=== PATIENT | female | born 1995 | race African-American/Black ===

== ENCOUNTER 2019-03-16 21:45 | Observation (INO) | payer OTHER, SELFPAY ==
[2019-03-16 21:57] VITALS: BP 135/83; PULSE 109
[2019-03-16 22:00] VITALS: BP 140/88; PULSE 106
--- NOTE | 2019-03-18 09:50 | PM.OBTRLD ---
OB - Triage/Final Diagnosis Final Diagnosis (1) Fall (on) (from) other stairs and steps, initial encounter: Code(s): W10.8XXA - Fall (on) (from) other stairs and steps, initial encounter Status: Acute
== END 2019-03-16 23:00 | disposition home or self-care (01) ==
PROVIDERS: Admitting Provider Obstetrics & Gynecology; Visit Provider Obstetrics & Gynecology
DX: O99.89 Other specified diseases and conditions complicating pregnancy, childbirth and the puerperium (principal); Z3A.37 37 weeks gestation of pregnancy; W10.8XXA Fall (on) (from) other stairs and steps, initial encounter
CPT/HCPCS: G0378; G0379

== ENCOUNTER 2019-03-23 17:42 | Observation (INO) | payer OTHER, SELFPAY ==
[2019-03-23 18:00] VITALS: BMI 38.0
[2019-03-23 18:10] VITALS: TEMP 36.6
--- NOTE | 2019-03-23 19:34 | OBADM ---
This patient, Jackie Mayfield, admitted to the OB room Labor/Delivery/Recovery 104 for observation. Patient/family oriented to hospital policies and general routines including ID bracelet, bed and alarms, visiting hours, pain management, procedures, bathroom and other care routines, personal items, smoking policy, room service/diet, and visiting hours. Patient/Family are encouraged to report perceived risks to care and to ask questions if they do not understand what they are told or what they should do.
--- NOTE | 2019-03-24 09:09 | PM.OBTRLD ---
OB - Triage/Final Diagnosis Visit Information Reason for evaluation: threatened labor Evaluation Vital signs: Vital Signs - 24 hr 03/23/19 18:10 Temperature 36.6 C
== END 2019-03-23 19:30 | disposition home or self-care (01) ==
PROVIDERS: Admitting Provider Obstetrics & Gynecology; Visit Provider Obstetrics & Gynecology
DX: O47.9 False labor, unspecified (principal); Z3A.00 Weeks of gestation of pregnancy not specified
CPT/HCPCS: 84112; G0378; G0379

== ENCOUNTER 2019-03-24 16:05 | Outpatient (CLI) | payer OTHER, SELFPAY ==
--- NOTE | ~2019-03-24 | US_ITS ---
EXAMINATION: US OB follow up DATE: 03/24/2019 17:00 INDICATION: Decreased movement and decreased heart rate. Assess growth and amniotic fluid index. TECHNIQUE: Real-time ultrasound of the pelvis was performed. The interpreting radiologist was not pre sent for the study. COMPARISON: None. FINDINGS: There is a single living fetus in vertex presentation. The placenta is anterior fundal. heart rate is 134 beats per minute (bpm). The amniotic fluid index is 15.6 cm, which is normal (5th%-95%: 7.3-23.9 cm at 38 weeks estimated gestational age). The following biometric data were obtained: BPD: 8.4 cm -> 33 weeks 5 days Head circumference: 31.7 cm -> 35 weeks 4 days Abdominal circumference: 33.5 cm -> 37 weeks 3 days Femur length: 7.0 cm -> 35 weeks 6 days These measurements are concordant. Head circumference to abdominal circumference ratio: 0.95 (normal range 0.93-1.09). Estimated weight: 2923 g (+/-) 438 g. or 6 lbs. 7 oz. (+/-) 15 oz. IMPRESSION: 1. Single living fetus in vertex presentation with heart rate of 134 bpm. 2. Gestational age by ultrasound of 35 weeks 5 day(s) +/- 2 week(s) 3 day(s) with ultrasound estimate d date of delivery (HENRY) of 04/23/2019. Estimated weight is 21st percentile by Hadlock criteria w hen 04/06/2019 is used as the HENRY. Please correlate with clinical information or earlier ultrasounds f or most accurate HENRY. 3. Normal amniotic fluid index of 15.6 cm. Reviewed, dictated and finalized at location A. ING COORDINATION METEOROLOGIST IMPRESSION: 1. Single living fetus in vertex presentation with heart rate of 134 bpm. 2. Gestational age by ultrasound of 35 weeks 5 day(s) +/- 2 week(s) 3 day(s) wi th ultrasound estimated date of delivery (HENRY) of 04/23/2019. Estimated ron ght is 21st percentile by Hadlock criteria when 04/06/2019 is used as the HENRY. P lease correlate with clinical information or earlier ultrasounds for most accur ate HENRY. 3. Normal amniotic fluid index of 15.6 cm.
== END 2019-03-24 16:06 | disposition home or self-care (01) ==
LOC: ANHIMG 16:10
PROVIDERS: Visit Provider Obstetrics & Gynecology
DX: Z34.93 Encounter for supervision of normal pregnancy, unspecified, third trimester (principal); Z3A.35 35 weeks gestation of pregnancy
CPT/HCPCS: 76816

== ENCOUNTER 2019-03-29 06:16 | Inpatient (IN) | payer OTHER, SELFPAY ==
[2019-03-29] VITALS (59 sets, daily range): BP systolic 91–163; BP diastolic 20–139; PULSE 82–132; RESP 16–18; TEMP 36.3–36.9; O2SAT 92–100; BMI 25.9
--- NOTE | 2019-03-29 06:58 | WPDANESEPP ---
Anes - Eval Pre Procedure Date/Time: 03/29/19 06:58 Pre Op Diagnosis: IOL Patient Data Age: 23 Gender: F Height: Weight: Last Vital Signs Pulse 109 H 03/29/19 06:34 BP 128/76 03/29/19 06:34 Allergies Allergy/AdvReac Type Severity Reaction Status Date / Time No Known Allergies Allergy Verified 03/06/19 14:29 Home Medications Medication Instructions Recorded Confirmed Type PNV cmb#95-ferrous fumarate-FA 1 tablet PO DAILY 03/06/19 03/23/19 History [] Patient hx anesthesia problems: none Family hx anesthesia problems: none PMFSH Family History Family History (Updated 03/06/19 @ 14:31 by Alejandra Barrera RN) Mother Hypertension Father Hypertension Diabetes mellitus Grandparent Diabetes mellitus Social History Social History Substance use: never Spiritual care concerns: No Exam Day of Procedure 03/29/19 06:58
[2019-03-29 07:28] LABS: Basophils Percent Auto 0.3 % (0.2-1.2); Eosinophils Absolute Auto 0.1 K/mm3 (0-0.3); Eosinophils Percent Auto 0.5 % (0-4.4); Hematocrit 33.6 % (37.0-47.0); Hemoglobin 11.1 g/dL (12.0-15.0); Immature Granulocyte Percent A 0.9 % (0-0.5); Lymphocytes Absolute Auto 2.19 K/mm3 (0.9-3.2); Lymphocytes Percent Auto 20.5 % (18.3-44.2); Mean Corpuscular Hemoglobin 27.5 pg (26-34); Mean Corpuscular Volume 83.4 fl (80-100); Mean Platelet Volume 9.3 fl (7.4-10.4); Monocytes Absolute Auto 0.8 K/mm3 (0.1-0.6); Monocytes Percent Auto 7.6 % (2.6-8.5); Neutrophils Absolute Auto 7.5 K/mm3 (1.3-6.7); Neutrophils Percent Auto 70.2 % (45.5-73.1); Platelet Count Result 373 k/mm3 (150-375); Red Blood Count 4.03 M/mm3 (4.2-5.4); Red Cell Distribution Width 14.4 % (11.5-14.5); White Blood Count 10.7 K/mm3 (4.5-10.0)
--- NOTE | 2019-03-29 07:45 | WPDHPUPDATE1 ---
History and Physical Update Update Date/Time: 03/29/19 07:45 History and Physical has been reviewed, including an updated exam of the patient. There are NO changes in the patient's condition. Risks, benefits, and alternatives have been discussed and questions answered. Patient agrees to proceed with procedure.
--- NOTE | 2019-03-29 07:45 | WPDOBADMIT ---
Obstetrics - Admit Note Admission Note: record reviewed. No pertinent additions to the history and/or any subsequent changes in the physical findings that are not consistent with the expected course of the were found. Additions to the history and/or subsequent changes in the physical findings follow. None.
[2019-03-29] MEDS: LACTATED RINGERS 1,000 ML 125 ML IV CONT ×3 (10:20→12:25)
--- NOTE | 2019-03-29 13:36 | PM.OBPRVD ---
OB - Delivery Note Procedure Delivery date: 03/29/19 Route of delivery: Episiotomy description: None Laceration description: None Specimen: No Estimated blood loss (mL): 200 Anesthesia type: Epidural Disposition: floor Narrative: Patient was prepped in the usual manner for this procedure. Maternal expulsive efforts readily delivered vertex. Rest of baby was delivered without difficulty. Cord was clamped and cut and placenta then delivered spontaneously. Cervix vagina and vulva were inspected with no lacerations or tears. Uterus is well contracted. At this point the procedure was considered terminated. [place] [facility] Weeks of gestation at delivery: 39 Infant gender: Male presentation: vertex Placenta delivery description: Spontaneous score one minute: 8 score five minutes: 9
--- NOTE | 2019-03-29 17:32 | PC.NURSE ---
Patient transferred to post room #282 via wheelchair. Support person present. Oriented to unit, room, information board, rooming in, admission packet and security measures. Patient verbalizes understanding.
[2019-03-30 05:18] LABS: Hematocrit 33.2 % (37.0-47.0); Hemoglobin 10.7 g/dL (12.0-15.0)
[2019-03-30 07:35] VITALS: BP 110/63; PULSE 84; RESP 17; TEMP 36.6; O2SAT 100
--- NOTE | 2019-03-30 10:22 | PM.OBDSVD ---
OB - DS: Summary OB Procedures : None OB Procedures Intrapartum: Spontaneous Vag Delivery OB Procedures: : None Time Spent with Patient Time attestation: Total time spent providing and/or coordinating discharge services: DS: Data Data Completed and Pending Labs on day of discharge: Labs from last 24 hours 03/30/19 04:39 Hgb 10.7 L Hct 33.2 L Discharge Plan Discharge Discharging Clinician: Manohar Eckert Anticipated Discharge Date/Time: 03/31/19 08:23 Patient Disposition: Home, Self-Care Activity: as tolerated Diet: as tolerated Patient Instructions: Antibiotic Form Stand Alone Forms: General Discharge Information Follow-up/Referrals: Manohar Eckert MD [Physician] - 3 Weeks Discharge Medications: New ibuprofen 600 mg Tablet 600 mg PO Q6H PRN (Reason: Cramping) Qty: 30 RF: 0 Continued PNV cmb#95-ferrous fumarate-FA [] 28 mg iron- 800 mcg Tablet 1 tablet PO DAILY RF: 0 Date of admission: 03/29/19 06:16 Primary Care Provider: UNKNOWN,DOCTOR Admitting Provider: Manohar Eckert Attending physician on admission: Manohar Eckert
--- NOTE | 2019-03-30 14:07 | WPDANLDPN2 ---
Anes-Prog Note L&D Date/Time: 03/30/19 14:07 Comfortable throughout: labor and delivery Neuraxial method: epidural Epidural/Spinal procedure site: clean & non-tender Neuro status: Neuro function grossly intact. Cardiovascular status: normal Respiratory status: normal Airway patency: baseline Mental status: baseline Post-Op hydration status: normal Vital Signs: Last Vital Signs Temp 97.9 F 03/30/19 07:35 Pulse 84 03/30/19 07:35 Resp 17 03/30/19 07:35 BP 110/63 03/30/19 07:35 Pulse Ox 100 03/30/19 07:35 Post-procedural complaints: none Patient feedback: Patient satisfied with anesthetic care.
[2019-03-30 20:10] VITALS: BP 105/67; PULSE 83; RESP 16; TEMP 37.1
[2019-03-31 07:31] LABS: Rapid Plasma Reagin Non-Reactive (NonReactive)
[2019-03-31 08:25] VITALS: BP 109/66; PULSE 75; RESP 14; TEMP 36.8; O2SAT 100
[2019-03-31] MEDS: TETANUS,DIPHTHERIA,AC PERTUSSIS ADULT 0.5 ML (ADACEL) IM (08:28)
--- NOTE | 2019-03-31 11:14 | PC.NURSE ---
Patient was given the opportunity to view the discharge video Mother & Baby Care, The First Two Weeks and to ask questions. Patient declined viewing the video and has been given the mother/baby guide for home reference.
--- NOTE | 2019-04-05 02:36 | P.DS_ITS ---
DS: Diagnosis Admitting Diagnosis Admitting Diagnosis: Encounter for supervision of normal , unspecified, third trimester OB - DS: Summary OB Procedures : None OB Procedures Intrapartum: Spontaneous Vag Delivery OB Procedures: : None Time Spent with Patient Time attestation: Total time spent providing and/or coordinating discharge services: Discharge Plan Discharge Consulting providers: Vivienne Lima Discharging Clinician: Manohar Eckert Anticipated Discharge Date/Time: 03/31/19 08:23 Patient Disposition: Home, Self-Care Activity: as tolerated Diet: as tolerated Discharge Instructions: Education: Mom and Baby Guide Given to: Mother Follow-Up: Call your delivering provider's office for an appointment to be seen in: 3 weeks Mom and baby should come to the [facility] for the follow-up appointment. Appointment Date/Time: Monday, April 01, 2019 at 9:00 am What to expect at your follow-up visit: Blood Pressure Check Physical Assessment Call [phone] if you are unable to keep your appointment time. BREAST CARE: 1. Wear a snug supportive bra. 2. For engorgement discomfort: Bottle Feeding: A. May apply ice packs EPISIOTOMY/PERINEAL CARE: 1. Until bleeding stops, use your german bottle after urinating 2. Change your pad frequently throughout the day 3. You may take sitz baths several times a day (fill your bathtub with warm water and soak for 20 minutes.) Do NOT bathe in the water 4. No tub baths until seen by your physician - You may shower ACTIVITY: 1. Rest as much as possible. 2. Do not exercise or lift anything heavier than your baby (such as laundry or other children.) 3. Avoid stairs or driving as much as possible. 4. Do not put anything into the vagina. No douching, tampons, or sexual activity until seen by physician. NOTIFY PHYSICIAN IF YOU HAVE ANY QUESTIONS OR IF ANY OF THE FOLLOWING SYMPTOMS OCCUR: 1. If your vaginal bleeding becomes foul smelling. 2. If your vaginal bleeding becomes more heavy than a period or if your bleeding changes from pink to bright red. However, you may pass an occasional walnut- sized clot once or twice for the first week . 3. If you experience a sharp, shooting pain in you calves. DIET: 1. Eat regular, well-balanced meals. 2. Drink plenty of fluids daily. Stand Alone Forms: General Discharge Information Follow-up/Referrals: Manohar Eckert MD [Physician] - 3 Weeks Discharge Medications: New ibuprofen 600 mg Tablet 600 mg PO Q6H PRN (Reason: Cramping) Qty: 30 RF: 0 Continued PNV cmb#95-ferrous fumarate-FA [] 28 mg iron- 800 mcg Tablet 1 tablet PO DAILY RF: 0 Date of admission: 03/29/19 06:16 Primary Care Provider: UNKNOWN,DOCTOR Admitting Provider: Manohar Eckert Discharge Date/Time: 03/31/19 12:33 Attending physician on admission: Manohar Eckert
--- NOTE | 2019-04-05 13:27 | PM.OBDSVD ---
DS: Diagnosis Admitting Diagnosis Admitting Diagnosis: Encounter for supervision of normal , unspecified, third trimester OB - DS: Summary OB Procedures : None OB Procedures Intrapartum: Spontaneous Vag Delivery OB Procedures: : None Time Spent with Patient Time attestation: Total time spent providing and/or coordinating discharge services: Discharge Plan Discharge Consulting providers: Vivienne Lima Discharging Clinician: Manohar Eckert Anticipated Discharge Date/Time: 03/31/19 08:23 Patient Disposition: Home, Self-Care Activity: as tolerated Diet: as tolerated Discharge Instructions: Education: Mom and Baby Guide Given to: Mother Follow-Up: Call your delivering provider's office for an appointment to be seen in: 3 weeks Mom and baby should come to the [facility] for the follow-up appointment. Appointment Date/Time: Monday, April 01, 2019 at 9:00 am What to expect at your follow-up visit: Blood Pressure Check Physical Assessment Call [phone] if you are unable to keep your appointment time. BREAST CARE: 1. Wear a snug supportive bra. 2. For engorgement discomfort: Bottle Feeding: A. May apply ice packs EPISIOTOMY/PERINEAL CARE: 1. Until bleeding stops, use your german bottle after urinating 2. Change your pad frequently throughout the day 3. You may take sitz baths several times a day (fill your bathtub with warm water and soak for 20 minutes.) Do NOT bathe in the water 4. No tub baths until seen by your physician - You may shower ACTIVITY: 1. Rest as much as possible. 2. Do not exercise or lift anything heavier than your baby (such as laundry or other children.) 3. Avoid stairs or driving as much as possible. 4. Do not put anything into the vagina. No douching, tampons, or sexual activity until seen by physician. NOTIFY PHYSICIAN IF YOU HAVE ANY QUESTIONS OR IF ANY OF THE FOLLOWING SYMPTOMS OCCUR: 1. If your vaginal bleeding becomes foul smelling. 2. If your vaginal bleeding becomes more heavy than a period or if your bleeding changes from pink to bright red. However, you may pass an occasional walnut-sized clot once or twice for the first week . 3. If you experience a sharp, shooting pain in you calves. DIET: 1. Eat regular, well-balanced meals. 2. Drink plenty of fluids daily. Stand Alone Forms: General Discharge Information Follow-up/Referrals: Manohar Eckert MD [Physician] - 3 Weeks Discharge Medications: New ibuprofen 600 mg Tablet 600 mg PO Q6H PRN (Reason: Cramping) Qty: 30 RF: 0 Continued PNV cmb#95-ferrous fumarate-FA [] 28 mg iron- 800 mcg Tablet 1 tablet PO DAILY RF: 0 Date of admission: 03/29/19 06:16 Primary Care Provider: UNKNOWN,DOCTOR Admitting Provider: Manohar Eckert Discharge Date/Time: 03/31/19 12:33 Attending physician on admission: Manohar Eckert
== END 2019-03-31 12:33 | disposition home or self-care (01) | DRG 560 ==
LOC: ANHLDR 06:21 → ANHOB2 16:46
PROVIDERS: Admitting Provider Obstetrics & Gynecology; Visit Provider Obstetrics & Gynecology
DX: O80 Encounter for full-term uncomplicated delivery (principal); Z37.0 Single live birth; Z3A.39 39 weeks gestation of pregnancy; Z23 Encounter for immunization
CPT/HCPCS: 36415; 85014; 85018; 85025; 86592; 86850; 86900; 86901; 90471; 90686; 90715; A9270; G0008; J2590; J2795; J7120

== ENCOUNTER 2019-11-07 13:23 | Emergency (ER) | payer OTHER, SELFPAY ==
--- NOTE | ~2019-11-07 | XR_ITS ---
EXAMINATION: XR foot LT min 3V EXAM DATE: 11/07/2019 14:10 INDICATION: Initial encounter following injury, with pain of the left foot. TECHNIQUE: Left foot dorsoplantar, lateral and oblique projections obtained and reviewed. There is n o prior study for comparison. FINDINGS: Left metatarsal bones unremarkable. There are no acute fractures or dislocations identifi ed. There is no subcutaneous gas. The soft tissue is unremarkable. There are no radiopaque foreig n bodies. IMPRESSION: No acute osseous findings. Reviewed, dictated and finalized at location B. IMPRESSION: No acute osseous findings.
[2019-11-07 13:38] VITALS: BP 125/71; PULSE 97; RESP 16; TEMP 36.4; O2SAT 100
--- NOTE | 2019-11-07 14:45 | ED.LOWEXIN ---
HPI - Extremity Injury (Lower) General Chief Complaint: Extremity Injury, Lower Stated Complaint: left ankle injury Time Seen by Provider: 11/07/19 13:28 Source: patient Mode of arrival: ambulatory Limitations: no limitations History of Present Illness HPI Narrative: Patient presents with chief complaint of pain to the dorsal aspect of her left foot that began after jumping down onto a machine to clean it and having her ankle invert. Patient denies pain to the ankle but more so in the front of the ankle and down for her toes. Patient states that she felt a popping sensation at the time of the event. She denies loss of range of motion but reports discomfort with plantar and dorsiflexion. Patient denies any prior fractures or injuries to her foot. Patient denies any other injuries or concerns. Related Data Home Medications Medication Instructions Recorded Confirmed No Home Medications 11/07/19 11/07/19 Allergies Allergy/AdvReac Type Severity Reaction Status Date / Time No Known Allergies Allergy Verified 03/06/19 14:29 Review of Systems Review of Systems: Narrative: CONSTITUTIONAL: Denies fever, chills, or sweats. EYES: Denies visual changes, redness, or discharge. ENT: Denies rhinorrhea, congestion, sore throat, or otalgia. CARDIOVASCULAR: Denies chest pain, palpitations, or edema. RESPIRATORY: Denies cough or dyspnea. GASTROINTESTINAL: Denies abdominal pain, nausea, vomiting, or diarrhea. GENITOURINARY: Denies dysuria or hematuria. SKIN: Denies rash or itching. MUSCULOSKELETAL: Reports left foot pain denies back pain, myalgia NEUROLOGIC: Denies headache, numbness, dizziness, or weakness. PSYCHIATRIC: Denies anxiety or depression. [facility] Family History Family History (Updated 03/06/19 @ 14:31 by Alejandra Barrera RN) Mother Hypertension Father Hypertension Diabetes mellitus Grandparent Diabetes mellitus Social History Social History Smoking status: Never smoker Substance use: never Gender identity (if verbalized by the patient): Female Spiritual care concerns: No Exam Narrative: Exam Narrative: GENERAL: Well-appearing, well-nourished. HEAD: Normocephalic, atraumatic. EYES: PERRLA and EOMI. ENT: Nares clear, no rhinorrhea or epistaxis. Mucous membranes moist. NECK: Supple. No adenopathy or masses. No vertebral tenderness or loss of ROM. CHEST: Clear to auscultation. No respiratory distress. No wheezes rales or rhonchi HEART: Regular rate and rhythm. Normal peripheral pulses. EXTREMITIES: RANGE OF motion intact. No appreciated edema, ecchymosis or abrasions. There is tenderness to the dorsal aspect of left foot along tendons diffusely. Plantar and dorsiflexion intact but with some discomfort. SKIN: Warm, dry, no rash. NEURO: No focal deficits. Alert and oriented x3. PSYCH: Normal mood and affect. Course Vital Signs Vital signs: Vital Signs Temperature 97.6 F 11/07/19 13:38 Pulse Rate 97 11/07/19 13:38 Respiratory Rate 16 11/07/19 13:38 Blood Pressure 125/71 11/07/19 13:38 Pulse Oximetry 100 11/07/19 13:38 Temperature 97.6 F 11/07/19 13:38 Pulse Rate 78 11/07/19 15:37 Respiratory Rate 16 11/07/19 15:37 Blood Pressure 110/89 11/07/19 15:37 Pulse Oximetry 100 11/07/19 15:37 MDM - Extremity Injury (Lower) MDM Narrative Medical decision making narrative: Discussed R ICE directions and the need to follow-up with primary care occupational health or intensive care medicine specialist for reevaluation within 1 week to determine whether MRI, physical therapy or further RICE is needed. Patient will be given a work note as her job requires her to do a lot of standing walking and climbing. Crutches to assist with ambulation. Patient instructed to take Tylenol and Motrin [id number] if she can tolerate them. Patient directed to return to emergency department she has any emergent symptoms. Differential Diagnosis Differential diagnosis: Likely ankle sprai
[2019-11-07 15:37] VITALS: BP 110/89; PULSE 78; RESP 16; O2SAT 100
== END 2019-11-07 15:38 | disposition home or self-care (01) ==
PROVIDERS: Emergency Provider Emergency Medicine
DX: S93.602A Unspecified sprain of left foot, initial encounter (principal); X50.0XXA Overexertion from strenuous movement or load, initial encounter
CPT/HCPCS: 73630; 99283

== ENCOUNTER 2021-01-17 12:56 | Emergency (ER) | payer OTHER, SELFPAY ==
[2021-01-17 13:01] VITALS: BP 129/77; PULSE 90; RESP 18; TEMP 37.1; O2SAT 100
[2021-01-17 14:51] VITALS: BP 119/75; PULSE 87; RESP 18; TEMP 36.9; O2SAT 98
--- NOTE | 2021-01-17 15:05 | PC.NURSE ---
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
== END 2021-01-18 02:22 | disposition left against medical advice (07) ==
LOC: ANHED 15:11
DX: Z53.21 Procedure and treatment not carried out due to patient leaving prior to being seen by health care provider (principal)
CPT/HCPCS: 99199

== ENCOUNTER 2021-02-10 10:17 | Outpatient (CLI) | payer OTHER, SELFPAY ==
[2021-02-10 12:02] LABS: Hematocrit 38.1 % (37.0-47.0); Mean Corpuscular HGB Conc 34.1 g/dl (32-36); Mean Corpuscular Hemoglobin 29.4 pg (26-34); Mean Corpuscular Volume 86.2 fl (80-100); Mean Platelet Volume 9.4 fl (7.4-10.4); Platelet Count Result 311 k/mm3 (150-375); Red Blood Count 4.42 M/mm3 (4.2-5.4); Red Cell Distribution Width 12.6 % (11.5-14.5); White Blood Count 6.1 K/mm3 (4.5-10.0)
[2021-02-10 12:10] LABS: Glucose 1 Hour PP 50gm Dose 90 mg/dL
[2021-02-10 12:52] LABS: HIV 1/2 Ab P24 Ag Result Negative (Negative)
[2021-02-10 13:18] LABS: Hepatitis B Surface Antigen Negative (Negative); Rubella IgG Antibody 1.8 IU/ML
[2021-02-11 14:38] LABS: Rapid Plasma Reagin Non-Reactive (NonReactive)
[2021-02-13 13:15] LABS: Varicella IgG Antibody <135.00 Index (>=165.00)
[2021-02-16 15:06] LABS: CMV IgG Antibody <0.60 U/mL (<0.60)
== END 2021-02-10 10:18 | disposition home or self-care (01) ==
PROVIDERS: Visit Provider Obstetrics & Gynecology
DX: N92.5 Other specified irregular menstruation (principal)
CPT/HCPCS: 36415; 82947; 84702; 85027; 85660; 86592; 86644; 86703; 86747; 86762; 86787; 86850; 86880; 86900; 86901; 86902; 87086; 87340; G0432

== ENCOUNTER 2021-04-03 09:26 | Emergency (ER) | payer OTHER, SELFPAY ==
[2021-04-03 09:29] VITALS: BP 131/84; PULSE 100; RESP 18; TEMP 36.7; O2SAT 100
--- NOTE | 2021-04-03 09:36 | ECG_ITS ---
Measurements Intervals [place] Rate: 91 P: 64 TX: 153 QRS: 50 QRSD: 82 T: 13 QT: 330 QTc: 406 Interpretive Statements SINUS RHYTHM BORDERLINE ST-T WAVE ABNORMALITY- INFERIOR LEADS BASELINE ARTIFACT- I, II, AVR, AVL BORDERLINE ECG Electronically Signed On 04-03-2021 12:14:38 FRYER OPERATOR by Raman Green D.O.
--- NOTE | 2021-04-03 09:44 | ED.SOB ---
HPI - SOB/Dyspnea General Chief Complaint: Shortness of Breath/Dyspnea Stated Complaint: Syncope, lost taste and smell, short of breath Time Seen by Provider: 04/03/21 09:34 Source: patient Mode of arrival: ambulatory Limitations: no limitations History of Present Illness HPI Narrative: This pt. presents independently ambulatory to the ER with complaints of having had loss of smell and taste from last night to today with a generalized feeling of dyspnea. She denies any cough, overt CP, and she has no N/V/D/urinary complaints. She does have a history of asthma and although her inhaler is , she has been using her mother's which has not made a difference in her symptoms. She is currently 15 4/7 gestation and has been followed by [facility]. Her next appointment is on Wednesday04/07/2021. Most recently she did just finish Azithromycin for a known exposure to Chlamydia. She denies any abdominal pain, and no contractions. There is no vaginal discharge, leakage and no foul odor according to patient. She is noted to have O2 sats of 100% on room air. She states today at work she may or may not have fainted. She reportedly had to sit down due to being weak and her co-workers state she fainted for a split second. She has no CP, headache, dizziness and she has had normal intake at home. She is vaccinated against COVID with only her first vaccine that she obtained two weeks ago. elicited complaint: shortness of breath Pertinent past history: asthma and other (Currently 15 4/7 gestation) Onset (ago): day(s) (1) Context: other (Occurred at rest.) Timing: other (persistent) Severity: mild Exacerbating factors: nothing Relieving factors: nothing Known history of: asthma Associated symptoms: other (Loss of taste and smell) Treatment prior to arrival: none Related Data Home oxygen amount: none Allergies Allergy/AdvReac Type Severity Reaction Status Date / Time No Known Allergies Allergy Verified 03/07/21 09:59 Review of Systems Review of Systems: All systems reviewed & are unremarkable except as noted in HPI and below Constitutional: Constitutional: Reports as per HPI, Denies fatigue, Denies fever(s) and Reports weakness ENT: Reports system reviewed and no additional complaints, except as documented Cardiovascular: Cardiovascular: Reports as per HPI, Reports no additional cardiovascular complaints, Denies chest pain, Reports syncope, Denies irregular heart rhythm and Denies dyspnea Respiratory: Respiratory: Reports as per HPI, Reports no additional respiratory complaints, Denies chest congestion, Denies cough, Denies hemoptysis and Reports dyspnea Gastrointestinal: Gastrointestinal: Reports no additional gastrointestinal complaints, Denies abdominal pain, Denies constipation, Denies diarrhea, Denies nausea and Denies vomiting Genitourinary: Genitourinary: Reports no additional female genitourinary complaints, Denies abnormal vaginal bleeding, Reports amenorrhea, Denies nocturia, Denies dysuria, Denies flank pain, Denies urinary hesitancy, Denies urinary urgency, Denies vaginal discharge, Denies vaginal dryness, Denies vaginal odor, Denies vaginal pruritus and Reports other (Currently . ) Musculoskeletal: Musculoskeletal: Reports no additional musculoskeletal complaints, Denies back pain, Denies myalgias, Denies arthralgias and Denies joint swelling Integumentary/Breasts: Skin/Breast: Reports system reviewed and no additional complaints, except as docu, Reports as per HPI and Denies dry skin Neurologic: Reports system reviewed and no additional complaints, except as documented, Reports as per HPI, Denies dizziness and Reports syncope Psychiatric: Psychiatric: Reports no additional psychiatric complaints and Reports as per HPI Endocrine: Endocrine: Reports no additional endocrine complaints and Reports as per HPI Hematologic/Lymphatic: Hematologic/Lymphatic: Reports no additional hematologic/lymphatic complaints Allergic/Immunologic: Al
[2021-04-03 09:52] LABS: Basophils Percent Auto 0.4 % (0.2-1.2); Eosinophils Percent Auto 0.4 % (0-4.4); Hematocrit 34.7 % (37.0-47.0); Hemoglobin 12.1 g/dL (12.0-15.0); Immature Granulocyte Absolute 0.02 K/mm3 (0.00-0.031); Immature Granulocyte Percent A 0.4 % (0-0.5); Lymphocytes Absolute Auto 1.52 K/mm3 (0.9-3.2); Lymphocytes Percent Auto 27.2 % (18.3-44.2); Mean Corpuscular HGB Conc 34.9 g/dl (32-36); Mean Corpuscular Hemoglobin 30.3 pg (26-34); Mean Corpuscular Volume 86.8 fl (80-100); Mean Platelet Volume 9.3 fl (7.4-10.4); Monocytes Absolute Auto 0.7 K/mm3 (0.1-0.6); Monocytes Percent Auto 12.2 % (2.6-8.5); Neutrophils Absolute Auto 3.3 K/mm3 (1.3-6.7); Neutrophils Percent Auto 59.4 % (45.5-73.1); Platelet Count Result 251 k/mm3 (150-375); Red Cell Distribution Width 12.9 % (11.5-14.5); White Blood Count 5.6 K/mm3 (4.5-10.0)
[2021-04-03 09:58] LABS: Alanine Aminotransferase 18 U/L (4-35); Alkaline Phosphatase 45 U/L (38-126); Anion Gap 9 mmol/L (8-16); Aspartate Amino Transferase 25 U/L (14-36); Bilirubin,Total 0.5 mg/dL (0.2-1.3); Blood Urea Nitrogen 4 mg/dL (7-17); Calcium 9.2 mg/dL (8.4-10.2); Carbon Dioxide 24 mmol/L (22-30); Chloride 103 mmol/L (98-107); Estimated CRCL calculation 140 ml/min; Estimated Glomerular Filt Rate > 60; Glucose 74 mg/dL (65-110); Sodium 136 mmol/L (137-145)
[2021-04-03 10:10] VITALS: O2SAT 100
[2021-04-03 10:10] LABS: Add Urine Microscopic? YES; Appearance Urine Clear (Clear); Bacteria Urine Trace /hpf; Bilirubin Urine Negative (Negative); Blood Urine Negative (Negative); Color Urine Yellow (Yellow); Glucose Urine UA Negative (Negative); Ketones Urine Negative (Negative); Leukocyte Esterase Ur Trace LEU/UL (Negative); Mucus Urine Rare /lpf; Nitrate Urine Negative (Negative); Protein Urine Negative (Negative); RBC Urine 0-2 /hpf (0-2); Specific Grav Ur 1.017 (1.001-1.035); Squamous Epithelial Cell Urine Many /hpf (Few); WBC Urine 0-3 /hpf
[2021-04-03] MEDS: POTASSIUM CHLORIDE 20 MEQ TABLET 40 MEQ PO (10:17)
[2021-04-03] MEDS: SODIUM CHLORIDE 0.9% IV 1,000 ML 999 ML IV CONT (10:17)
[2021-04-03 10:24] LABS: EDCOVIDSCREEN Negative (Negative)
[2021-04-03 11:15] VITALS: BP 116/68; PULSE 91; RESP 18; O2SAT 100
== END 2021-04-03 11:18 | disposition home or self-care (01) ==
PROVIDERS: Emergency Medicine; Emergency Provider Nurse Practitioner Adult Health
DX: E86.0 Dehydration (principal); Z20.822 Contact with and (suspected) exposure to COVID-19; J45.909 Unspecified asthma, uncomplicated
CPT/HCPCS: 36415; 80053; 81001; 85025; 87426; 93005; 96360; 99284; A9270; C9803; J7030

== ENCOUNTER 2021-05-19 10:55 | Observation (INO) | payer OTHER, SELFPAY ==
--- NOTE | 2021-05-19 10:50 | PC.NURSE ---
Pt stated she is 20 weeks and also has abdominal pain that radiates into her back as well. OB called and will see Pt. over in OB first.
--- NOTE | 2021-05-19 10:55 | PC.NURSE ---
Patient to OB from ER. Pt states she felt dizzy this morning and may have passed out but she is unsure and if so she is unsure how low she was out Pt states she has had intermittant headache since Wednesday. States she has had episodes of feeling dizzy and short of breath with possibly passing out several times since January. States she has been givena sitting down job at work for same. Pt does not have vomiting. States she has discomfort to upper abdomen that radiates to back on both sides. States she has been told she has a hernia. Abdomen is soft and non tender with palpation. When asked pt states she has not had a BM for 2 at least 2 weeks but does not feel constipated.
[2021-05-19 11:10] VITALS: BP 112/63; PULSE 96
[2021-05-19 11:33] VITALS: BP 112/58; PULSE 85
[2021-05-19 11:35] VITALS: BP 114/62; PULSE 93
--- NOTE | 2021-05-19 11:35 | PC.NURSE ---
Orthostatic blood pressures as noted. 1133 lying 112/58 HR 85 1135 sitting 114/62 HR 93 1136 standing 118/62 HR 103
[2021-05-19 11:36] VITALS: BP 118/62; PULSE 103
[2021-05-19] MEDS: LACTATED RINGERS 1,000 ML 999 ML IV CONT (11:47)
[2021-05-19 12:00] VITALS: BP 116/65; PULSE 86
[2021-05-19 12:01] LABS: Basophils Percent Auto 0.4 % (0.2-1.2); Eosinophils Percent Auto 0.5 % (0-4.4); Hematocrit 34.8 % (37.0-47.0); Immature Granulocyte Absolute 0.03 K/mm3 (0.00-0.031); Immature Granulocyte Percent A 0.5 % (0-0.5); Lymphocytes Absolute Auto 1.26 K/mm3 (0.9-3.2); Lymphocytes Percent Auto 22.3 % (18.3-44.2); Mean Corpuscular HGB Conc 34.5 g/dl (32-36); Mean Platelet Volume 9.4 fl (7.4-10.4); Monocytes Absolute Auto 0.6 K/mm3 (0.1-0.6); Monocytes Percent Auto 10.8 % (2.6-8.5); Neutrophils Absolute Auto 3.7 K/mm3 (1.3-6.7); Neutrophils Percent Auto 65.5 % (45.5-73.1); Platelet Count Result 277 k/mm3 (150-375); Red Cell Distribution Width 13.2 % (11.5-14.5); White Blood Count 5.7 K/mm3 (4.5-10.0)
--- NOTE | 2021-05-19 12:15 | PC.NURSE ---
Dr. Judge on unit and reviewed labs. IV infusing without difficulty. Pt states she would like to try to eat. Appears comfortable.
[2021-05-19 12:17] LABS: Alanine Aminotransferase 9 U/L (4-35); Albumin Level 3.7 g/dL (3.5-5.1); Alkaline Phosphatase 48 U/L (38-126); Anion Gap 7 mmol/L (8-16); Aspartate Amino Transferase 18 U/L (14-36); Bilirubin,Total 0.4 mg/dL (0.2-1.3); Blood Urea Nitrogen 5 mg/dL (7-17); Calcium 8.4 mg/dL (8.4-10.2); Carbon Dioxide 22 mmol/L (22-30); Chloride 106 mmol/L (98-107); Estimated Glomerular Filt Rate > 60; Glucose 92 mg/dL (65-110); Potassium 3.3 mmol/L (3.4-5.0); Sodium 135 mmol/L (137-145); Uric Acid 3.4 mg/dL (2.5-7.5)
[2021-05-19 12:26] LABS: Add Urine Microscopic? YES; Appearance Urine Cloudy (Clear); Bilirubin Urine Negative (Negative); Blood Urine Negative (Negative); Color Urine Yellow (Yellow); Glucose Urine UA Negative (Negative); Ketones Urine Negative (Negative); Leukocyte Esterase Ur Negative LEU/UL (NEGATIVE); Mucus Urine Rare /lpf; Nitrate Urine Negative (Negative); Protein Urine Negative (Negative); Specific Grav Ur 1.021 (1.001-1.035); Squamous Epithelial Cell Urine Many /hpf (Few); Urobilinogen Urine Negative mg/dL (<2.0)
--- NOTE | 2021-05-19 12:52 | P.PNOB_ITS ---
OB - Triage/Final Diagnosis Visit Information Comments/Additional reasons for admission: I have assessed the risk for this patient, Jackie Mayfield, and determined that she would benefit from observation care. Evaluation Laboratory results: Laboratory Tests 05/19/21 05/19/21 05/19/21 11:35 11:35 11:35 WBC 5.7 RBC 4.00 L Hgb 12.0 Hct 34.8 L MCV 87.0 MCH 30.0 MCHC 34.5 RDW 13.2 Plt Count 277 MPV 9.4 Immature Gran % (Auto) 0.5 Neut % (Auto) 65.5 Lymph % (Auto) 22.3 [place] % (Auto) 10.8 H Eos % (Auto) 0.5 Baso % (Auto) 0.4 Lymph # (Auto) 1.26 [place] # (Auto) 0.6 Eos # (Auto) 0.0 Baso # (Auto) 0.0 Abs Immat Gran (auto) 0.03 Absolute Neuts (auto) 3.7 Absolute Nucleated RBC 0.0 Nucleated RBC % 0.0 Sodium 135 L Potassium 3.3 L Chloride 106 Carbon Dioxide 22 Anion Gap 7 L BUN 5 L Creatinine 0.50 L Estim Creat Clear Calc Not Reportable Estimated GFR > 60 Glucose 92 Uric Acid 3.4 Calcium 8.4 Total Bilirubin 0.4 AST 18 ALT 9 Alkaline Phosphatase 48 Total Protein 7.0 Albumin 3.7 Urine Color Yellow Urine Appearance Cloudy H Urine pH 7.0 Ur Specific [place] 1.021 Urine Protein Negative Urine Glucose (UA) Negative Urine Ketones Negative Ur Blood (Man) Negative Urine Nitrate Negative Urine Bilirubin Negative Urine Urobilinogen Negative Ur Leukocyte Esterase Negative Urine RBC 3-5 H Urine WBC 4-6 H Ur Squamous Epith Cells Many H Urine Mucus Rare Vital signs: Vital Signs - 24 hr 05/19/21 11:10 05/19/21 11:33 05/19/21 11:35 Pulse Rate 96 85 93 Blood Pressure 112/63 112/58 L 114/62 05/19/21 11:36 05/19/21 12:00 Pulse Rate 103 H 86 Blood Pressure 118/62 116/65 Final Diagnosis (1) Dehydration during : Code(s): O99.280 - Endocrine, nutritional and metabolic diseases complicating , unspecified trimester; E86.0 - Dehydration Status: Acute
--- NOTE | 2021-05-19 12:53 | PC.NURSE ---
Patient states she is feeling better. Pt ordered a lunch tray. IV infused without difficulty and pt states she is feeling better. Pt states she would like to have a return to work form. Dr. Judge on unit and advised. WIll discharge pt home.
== END 2021-05-19 13:09 | disposition home or self-care (01) ==
PROVIDERS: Admitting Provider Obstetrics & Gynecology; Visit Provider Obstetrics & Gynecology
DX: O99.282 Endocrine, nutritional and metabolic diseases complicating pregnancy, second trimester (principal); E86.0 Dehydration; Z3A.20 20 weeks gestation of pregnancy
CPT/HCPCS: 36415; 80053; 81001; 84550; 85025; 87086; G0378; G0379; J7120

== ENCOUNTER 2021-05-28 12:39 | Outpatient (CLI) | payer OTHER, SELFPAY ==
[2021-05-28 13:43] LABS: Alanine Aminotransferase 10 U/L (4-35); Albumin Level 3.9 g/dL (3.5-5.1); Alkaline Phosphatase 57 U/L (38-126); Amylase 79 U/L (30-110); Anion Gap 6 mmol/L (8-16); Aspartate Amino Transferase 18 U/L (14-36); Bilirubin,Total 0.3 mg/dL (0.2-1.3); Blood Urea Nitrogen 5 mg/dL (7-17); Calcium 8.7 mg/dL (8.4-10.2); Carbon Dioxide 23 mmol/L (22-30); Chloride 105 mmol/L (98-107); Estimated Glomerular Filt Rate > 60; Glucose 90 mg/dL (65-110); Lipase 47 U/L (23-300); Potassium 3.3 mmol/L (3.4-5.0); Sodium 134 mmol/L (137-145)
== END 2021-05-28 12:40 | disposition home or self-care (01) ==
LOC: ANHLAB 12:41
PROVIDERS: Visit Provider Obstetrics & Gynecology
DX: R10.9 Unspecified abdominal pain (principal)
CPT/HCPCS: 36415; 80053; 82150; 83690

== ENCOUNTER 2021-06-06 11:13 | Observation (INO) | payer OTHER, SELFPAY ==
--- NOTE | ~2021-06-06 | US_ITS ---
EXAMINATION: US OB follow up EXAM DATE: 06/06/2021 13:03 INDICATION: Post fall, Growth, HANDY, and check placenta. 2nd trimester. TECHNIQUE: Pelvic obstetrical transabdominal sonogram was performed by a technologist. There are mu ltiple grayscale and Doppler images available for interpretation. Comparison is made to prior examina tion from 04/28/2021. FINDINGS: There is a single fetus identified in vertex presentation with a heart rate of 135 beats pe r minute. The placenta is located in the posterior position. There is no sonographic evidence of ret roplacental hemorrhage identified. The amniotic fluid index is 14.2 centimeters, which is normal. BIOMETRIC DATA: Biparietal diameter (BPD): 6.2 cm ----------------> 25 weeks 1 day. Head circumference (HC): 23.3 cm ----------------> 25 weeks 3 days. Abdominal circumference (AC): 20.4 cm ----------> 25 weeks 0 days. Femur length (FL): 4.5 cm --------------------------> 25 weeks 0 days. These measurements are concordant. HC/AC ratio is 1.14 (The 5th -- 95th percentile range is 1.04-1.22. Estimated weight is 762 g +/- 114 g. This is the 29th percentile when the currently reported c linical gestation age 25 weeks 2 days, clinical estimated date of delivery ([facility]) 09/17 is used. Fet al estimated gestational age based on measurements from this exam is 25 weeks 1 day, with an estimate d date of delivery ([facility]) 09/18. IMPRESSION: 1. Single fetus in vertex presentation with heart rate 135 beats per minute. 2. Estimated weight of 762 grams, 29th percentile using the currently reported clinical gestat ion age of 25 weeks 2 days, [facility](OPE) 09/17. 3. Normal HANDY 14.2 cm. Reviewed, dictated and finalized at location A. IMPRESSION: 1. Single fetus in vertex presentation with heart rate 135 beats per minute. 2. Estimated weight of 762 grams, 29th percentile using the currently re ported clinical gestation age of 25 weeks 2 days, HENRY(OPE) 8/3. 3. Normal HANDY 14.2 cm.
--- NOTE | 2021-06-06 11:30 | OBADM ---
This patient, Jackie Mayfield, admitted to the OB room OB Post 113 for observation. Patient/family oriented to hospital policies and general routines including ID bracelet, bed and alarms, visiting hours, pain management, procedures, bathroom and other care routines, personal items, smoking policy, room service/diet, and visiting hours. Patient/Family are encouraged to report perceived risks to care and to ask questions if they do not understand what they are told or what they should do.
[2021-06-06 11:31] VITALS: BP 109/66; PULSE 91
[2021-06-06 11:45] VITALS: BP 109/60; PULSE 83
[2021-06-06 12:00] VITALS: BP 103/61; PULSE 85
[2021-06-06 12:15] VITALS: BP 104/61; PULSE 83
--- NOTE | 2021-06-10 13:26 | PM.OBTRLD ---
OB - Triage/Final Diagnosis Visit Information Comments/Additional reasons for admission: I have assessed the risk for this patient, Jackie Mayfield, and determined that she would benefit from observation care. Final Diagnosis (1) Fall (on) (from) other stairs and steps, initial encounter: Code(s): W10.8XXA - Fall (on) (from) other stairs and steps, initial encounter Status: Acute (2) : Code(s): Z34.90 - Encounter for supervision of normal , unspecified, unspecified trimester Status: Acute
== END 2021-06-06 13:29 | disposition home or self-care (01) ==
PROVIDERS: Admitting Provider Obstetrics & Gynecology; PCP Physician Assistant; Visit Provider Obstetrics & Gynecology
DX: Z04.3 Encounter for examination and observation following other accident (principal); O26.892 Other specified pregnancy related conditions, second trimester; W10.8XXA Fall (on) (from) other stairs and steps, initial encounter; Z3A.24 24 weeks gestation of pregnancy
CPT/HCPCS: 76816; G0378; G0379

== ENCOUNTER 2021-06-13 06:54 | Outpatient (CLI) | payer OTHER, SELFPAY ==
--- NOTE | ~2021-06-13 | US_ITS ---
EXAMINATION: US abdomen complete DATE: 06/13/2021 08:54 INDICATION: Abdominal pain TECHNIQUE: Multiple grayscale and Doppler ultrasound images of the abdomen were obtained. COMPARISON: None available FINDINGS: Bowel gas obscures visualization of the pancreas. The visualized portions of the pancreas a re unremarkable. The liver is normal with normal echogenicity and echotexture. No surface nodularity. Normal hepatopetal flow in the main portal vein. The gallbladder is normal with no abnormal wall thi ckening, pericholecystic fluid or stones. The normal common bile duct measures 3 mm. There was no son ographic Kirk sign. The visualized portions of the aorta and inferior vena cava are normal. The right kidney measures 10.1 x 5.8 x 4.8 cm. The left kidney measures 11.0 x 4.8 x 4.9 cm. The kidn eys demonstrate normal parenchymal echogenicity. There is no hydronephrosis. The spleen is normal in appearance and measures 11.8 cm. IMPRESSION: 1. No sonographic correlate for the patient's symptoms. Reviewed, dictated and finalized at location B.
== END 2021-06-13 06:55 | disposition home or self-care (01) ==
PROVIDERS: PCP Physician Assistant; Visit Provider Obstetrics & Gynecology
DX: R10.9 Unspecified abdominal pain (principal)
CPT/HCPCS: 76700

== ENCOUNTER 2021-06-21 06:35 | Observation (INO) | payer OTHER, SELFPAY ==
[2021-06-21] VITALS (42 sets, daily range): BP systolic 83–132; BP diastolic 59–82; PULSE 90–119; TEMP 36.6; O2SAT 96–100; BMI 31.2
--- NOTE | ~2021-06-21 | US_ITS ---
EXAMINATION: US OB limited, US OB transvaginal DATE: 06/21/2021 09:22 (accession [id number]), 06/21/2021 09:23 (accession [id number]) INDICATION: Spotting, placental and cervical length assessment during second trimester TECHNIQUE: Real-time ultrasound of the pelvis was performed. The interpreting radiologist was not pre sent for the study. COMPARISON: None. FINDINGS: There is a single living fetus in vertex presentation. The placenta is posterior and 9.5 cm from the internal cervical os. The cervical length is 5.0 cm. cardiac activity and movem ent are noted. heart rate is 145 beats per minute (bpm). The amniotic fluid index is 18.5 cm wh ich is normal (normal range: 9.5 cm to 22.6 cm). IMPRESSION: 1. Single living fetus in vertex presentation. 2. Posterior placenta 9.5 cm from the internal cervical os. 3. Cervical length is 5.0 cm. 4. Normal amniotic fluid index. Reviewed, dictated and finalized at location A. IMPRESSION: 1. Single living fetus in vertex presentation. 2. Posterior placenta 9.5 cm from the internal cervical os. 3. Cervical length is 5.0 cm. 4. Normal amniotic fluid index.
--- NOTE | 2021-06-21 06:36 | OBADM ---
This patient, Jackie Mayfield, admitted to the OB room 116 for observation for vaginal spotting and lower abdominal pain. Patient/family oriented to hospital policies and general routines including ID bracelet, bed and alarms, visiting hours, pain management, procedures, bathroom and other care routines, personal items, smoking policy, room service/diet, and visiting hours. Patient/Family are encouraged to report perceived risks to care and to ask questions if they do not understand what they are told or what they should do.
[2021-06-21 07:31] LABS: Appearance Urine Clear (Clear); Bilirubin Urine Negative (Negative); Blood Urine 2+ (Negative); Glucose Urine UA Negative (Negative); Ketones Urine Negative (Negative); Leukocyte Esterase Ur Negative LEU/UL (Negative); Nitrate Urine Negative (Negative); Protein Urine Negative (Negative); Urobilinogen Urine 0.2 mg/dL (<2.0); pH Urine 6.5 (5.0-9.0)
[2021-06-21] MEDS: TERBUTALINE SULFATE 1 MG/ML VIAL 0.25 MG SUB-Q ×2 (07:31→10:42)
[2021-06-21 07:42] LABS: Add Urine Microscopic? YES; Color Urine Straw (Yellow)
[2021-06-21 07:48] LABS: Squamous Epithelial Cell Urine Rare /hpf (Few); WBC Urine 0-3 /hpf
--- NOTE | 2021-06-30 14:15 | PM.OBTRLD ---
OB - Triage/Final Diagnosis Visit Information Comments/Additional reasons for admission: I have assessed the risk for this patient, Jackie Mayfield, and determined that she would benefit from observation care. Evaluation Laboratory results: Laboratory Tests 06/21/21 07:04 Urine Color Straw Urine Appearance Clear Urine pH 6.5 Ur Specific [place] 1.010 Urine Protein Negative Urine Glucose (UA) Negative Urine Ketones Negative Ur Blood (Man) 2+ H Urine Nitrate Negative Urine Bilirubin Negative Urine Urobilinogen 0.2 Leukocyte Esterase Rfl Negative Urine WBC 0-3 Ur Squamous Epith Cells Rare Final Diagnosis (1) Vaginal spotting: Code(s): N93.9 - Abnormal uterine and vaginal bleeding, unspecified Status: Acute
== END 2021-06-21 12:38 | disposition home or self-care (01) ==
LOC: ANHOBOP 06:36 → ANHOBPP 06:36 → ANHLDR 12:42
PROVIDERS: Admitting Provider Obstetrics & Gynecology; PCP Physician Assistant; Visit Provider Obstetrics & Gynecology
DX: O26.852 Spotting complicating pregnancy, second trimester (principal); Z3A.27 27 weeks gestation of pregnancy; Z37.0 Single live birth
CPT/HCPCS: 76815; 76817; 81001; 96372; G0378; G0379; J3105

== ENCOUNTER 2021-07-08 10:43 | Outpatient (RCR) | payer OTHER, SELFPAY ==
[2021-07-08 12:17] VITALS: BP 122/63; PULSE 90
== END 2021-10-03 15:00 | disposition home or self-care (01) ==
LOC: ANHOBOP 10:43
PROVIDERS: PCP Physician Assistant; Visit Provider Obstetrics & Gynecology
DX: O36.8130 Decreased fetal movements, third trimester, not applicable or unspecified (principal); Z3A.29 29 weeks gestation of pregnancy
CPT/HCPCS: 59025

== ENCOUNTER 2021-07-21 10:52 | Emergency (ER) | payer OTHER, SELFPAY ==
[2021-07-21 10:56] VITALS: BP 108/66; PULSE 92; RESP 20; TEMP 36.2; O2SAT 99
--- NOTE | 2021-07-21 12:12 | ED.NAVMDI ---
HPI - Nausea/Vomiting/Diarrhea General Chief complaint: Nausea/Vomiting/Diarrhea Stated complaint: sore throat, feverish Time Seen by Provider: 07/21/21 11:46 History of Present Illness HPI Narrative: 26-year-old female presents to the emergency room today for complaints of sore throat and feeling hot. Symptoms started yesterday. She is checked her temperature at home and it was normal. She denies any runny nose or cough. No headache dizziness or lightheadedness. No shortness of breath or wheezing. Her children have similar symptoms. She is 31 weeks . She is getting weekly nonstress test on the baby. Denies any problems with the . Related Data Allergies Allergy/AdvReac Type Severity Reaction Status Date / Time No Known Allergies Allergy Verified 07/21/21 11:20 Review of Systems Review of Systems: CONSTITUTIONAL: Denies fever, chills, or sweats. Reports hot flashes. EYES: Denies visual changes, redness, or discharge. ENT: Denies rhinorrhea, congestion,or otalgia. Reports sore throat CARDIOVASCULAR: Denies chest pain, palpitations, or edema. RESPIRATORY: Denies cough or dyspnea. GASTROINTESTINAL: Denies abdominal pain, nausea, vomiting, or diarrhea. GENITOURINARY: Denies dysuria or hematuria. SKIN: Denies rash or itching. MUSCULOSKELETAL: Denies back pain, joint pain, or myalgia. NEUROLOGIC: Denies headache, numbness, dizziness, or weakness. PSYCHIATRIC: Denies anxiety or depression. PMFSH Past Medical History Medical History Asthma Bronchitis Encounter for screening for infections with a predominantly sexual mode of transmission Family History Family History Mother Hypertension Father Hypertension Diabetes mellitus Grandparent Diabetes mellitus Breast cancer maternal grandmother Social History Social History Smoking status: Never smoker Alcohol intake: never Substance use: never Substance use type: does not use Additional occupation/education comments: packing Gender identity (if verbalized by the patient): Female Sexual Orientation (if Verbalized by the Patient): Straight or Heterosexual Spiritual care concerns: No Exam Narrative: GENERAL: Well-appearing, well-nourished, and in no acute distress. HEAD: Normocephalic, atraumatic. EYES: conjunctiva clear, no drainage ENT: Nares clear, no rhinorrhea or epistaxis. Mucous membranes moist. Oropharynx without tonsillar hypertrophy exudate or other lesions. Mild erythema. Bilateral TMs pearly jimenez nonbulging NECK: Supple. No adenopathy or masses. No carotid bruits or JVD CHEST: Clear to auscultation. No respiratory distress. No wheezes rales or rhonchi HEART: Regular rate and rhythm. No murmur heard. Normal peripheral pulses. SKIN: Warm, dry, no rash. NEURO: No focal deficits. Alert and oriented x3. PSYCH: Normal mood and affect. Course Vital Signs Vital signs: Vital Signs Temperature 36.2 C L 07/21/21 10:56 Pulse Rate 92 07/21/21 10:56 Respiratory Rate 20 07/21/21 10:56 Blood Pressure 108/66 07/21/21 10:56 Pulse Oximetry 99 07/21/21 10:56 Oxygen Delivery Room Air 07/21/21 10:56 Temperature 36.2 C L 07/21/21 10:56 Pulse Rate 92 07/21/21 10:56 Respiratory Rate 20 07/21/21 10:56 Blood Pressure 108/66 07/21/21 10:56 Pulse Oximetry 99 07/21/21 10:56 Oxygen Delivery Room Air 07/21/21 10:56 MDM - Nausea/Vomiting/Diarrhea Lab Data Attestation: I reviewed the patient's lab results. Labs: Strep Screen Presumptive Negative *(Reference Range: Negative)* Discharge Plan Discharge Clinical Impression: Acute viral pharyngitis Patient Disposition: Home, Self-Care Condition: Stable Instructions: Antibiotic Form, Pharyngitis
[2021-07-21 12:41] VITALS: BP 128/76; PULSE 84; RESP 16; O2SAT 98
== END 2021-07-21 12:41 | disposition home or self-care (01) ==
PROVIDERS: Emergency Provider Nurse Practitioner Family; PCP Physician Assistant
DX: J02.9 Acute pharyngitis, unspecified (principal); J45.909 Unspecified asthma, uncomplicated
CPT/HCPCS: 87081; 87880; 99283

== ENCOUNTER 2021-07-25 09:31 | Outpatient (CLI) | payer OTHER, SELFPAY ==
[2021-07-25 10:03] LABS: Basophils Percent Auto 0.2 % (0.2-1.2); Eosinophils Percent Auto 0.2 % (0-4.4); Hematocrit 34.7 % (37.0-47.0); Hemoglobin 11.3 g/dL (12.0-15.0); Immature Granulocyte Absolute 0.06 K/mm3 (0.00-0.031); Immature Granulocyte Percent A 0.7 % (0-0.5); Lymphocytes Absolute Auto 1.73 K/mm3 (0.9-3.2); Lymphocytes Percent Auto 21.3 % (18.3-44.2); Mean Corpuscular HGB Conc 32.6 g/dl (32-36); Mean Corpuscular Hemoglobin 28.8 pg (26-34); Mean Corpuscular Volume 88.5 fl (80-100); Mean Platelet Volume 9.4 fl (7.4-10.4); Monocytes Absolute Auto 0.6 K/mm3 (0.1-0.6); Monocytes Percent Auto 7.6 % (2.6-8.5); Neutrophils Absolute Auto 5.7 K/mm3 (1.3-6.7); Platelet Count Result 285 k/mm3 (150-375); Red Blood Count 3.92 M/mm3 (4.2-5.4); White Blood Count 8.1 K/mm3 (4.5-10.0)
[2021-07-25 10:54] LABS: HIV 1/2 Ab P24 Ag Result Negative (Negative)
== END 2021-07-25 09:32 | disposition home or self-care (01) ==
LOC: ANHLAB 09:33
PROVIDERS: PCP Physician Assistant; Visit Provider Obstetrics & Gynecology
DX: Z34.90 Encounter for supervision of normal pregnancy, unspecified, unspecified trimester (principal); Z3A.00 Weeks of gestation of pregnancy not specified
CPT/HCPCS: 36415; 85025; 86703; G0432

== ENCOUNTER 2021-08-19 11:46 | Outpatient (CLI) | payer OTHER, SELFPAY ==
[2021-08-19 13:13] LABS: Glucose 1 Hour PP 50gm Dose 101 mg/dL
== END 2021-08-19 11:47 | disposition home or self-care (01) ==
PROVIDERS: PCP Physician Assistant; Visit Provider Obstetrics & Gynecology
DX: Z34.90 Encounter for supervision of normal pregnancy, unspecified, unspecified trimester (principal); Z3A.00 Weeks of gestation of pregnancy not specified
CPT/HCPCS: 36415; 82947

== ENCOUNTER 2021-08-27 19:06 | Outpatient (CLI) | payer OTHER, SELFPAY ==
[2021-08-27 20:30] VITALS: BP 119/71; PULSE 95
== END 2021-08-27 20:34 | disposition home or self-care (01) ==
PROVIDERS: PCP Physician Assistant; Visit Provider Obstetrics & Gynecology
DX: O42.913 Preterm premature rupture of membranes, unspecified as to length of time between rupture and onset of labor, third trimester (principal); Z3A.36 36 weeks gestation of pregnancy
CPT/HCPCS: 59025; 84112

== ENCOUNTER 2021-09-10 16:08 | Outpatient (CLI) | payer OTHER, SELFPAY | END 2021-09-10 17:05 | disposition home or self-care (01) | LOC: ANHOBOP 16:54 | PROVIDERS: PCP Physician Assistant; Visit Provider Obstetrics & Gynecology | DX: O42.90 Premature rupture of membranes, unspecified as to length of time between rupture and onset of labor, unspecified weeks of gestation (principal); Z3A.00 Weeks of gestation of pregnancy not specified | CPT/HCPCS: 59025; 84112 ==

== ENCOUNTER 2021-09-14 04:34 | Inpatient (IN) | payer OTHER, SELFPAY ==
[2021-09-14] VITALS (53 sets, daily range): BP systolic 83–146; BP diastolic 53–85; PULSE 67–116; RESP 16–18; TEMP 36.2–36.8; O2SAT 99–100; BMI 36.3
[2021-09-14 05:17] LABS: Basophils Percent Auto 0.3 % (0.2-1.2); Eosinophils Percent Auto 0.4 % (0-4.4); Hematocrit 34.2 % (37.0-47.0); Hemoglobin 11.1 g/dL (12.0-15.0); Immature Granulocyte Absolute 0.05 K/mm3 (0.00-0.031); Immature Granulocyte Percent A 0.6 % (0-0.5); Lymphocytes Absolute Auto 2.08 K/mm3 (0.9-3.2); Lymphocytes Percent Auto 23.3 % (18.3-44.2); Mean Corpuscular HGB Conc 32.5 g/dl (32-36); Mean Corpuscular Hemoglobin 27.9 pg (26-34); Mean Corpuscular Volume 85.9 fl (80-100); Mean Platelet Volume 9.8 fl (7.4-10.4); Monocytes Absolute Auto 0.7 K/mm3 (0.1-0.6); Monocytes Percent Auto 7.4 % (2.6-8.5); Neutrophils Absolute Auto 6.1 K/mm3 (1.3-6.7); Platelet Count Result 316 k/mm3 (150-375); Red Blood Count 3.98 M/mm3 (4.2-5.4); Red Cell Distribution Width 13.9 % (11.5-14.5); White Blood Count 8.9 K/mm3 (4.5-10.0)
[2021-09-14] MEDS: AMPICILLIN 2 GM/NS 100 ML 2 GM/100 ML BAG IVPB (05:19)
[2021-09-14] MEDS: LACTATED RINGERS 1,000 ML 125 ML IV CONT ×2 (05:20→09:21)
[2021-09-14] MEDS: OXYTOCIN 30 UNITS/NS 500 ML 30 UNITS/500 ML BAG IV CONT (05:40)
--- NOTE | 2021-09-14 05:41 | LDADM ---
This patient, Jackie Mayfield, was admitted to Labor/Delivery/Recovery 105 on 09/14/21 at 04:34. Plans for labor, pain management and were discussed with patient. Patient/family oriented to hospital policies and general routines including ID bracelet, bed and alarms, visiting hours, pain management, procedures, bathroom and other care routines, personal items, smoking policy, room service/diet and guest tray routines, security routines, and visiting hours. Patient/Family are encouraged to report perceived risks to care and to ask questions if they do not understand what they are told or what they should do. See OBIX for further documentation.
[2021-09-14] MEDS: AMPICILLIN 1 GM/NS 50 ML 1 GM/50 ML BAG IVPB (09:09)
--- NOTE | 2021-09-14 10:42 | PM.IMHP ---
H&P: HPI History of Present Illness Date/Time: 09/14/21 10:35 Chief Complaint: elective induction Narrative: Jackie is a 26yo @ 39.0wks ([facility] 09/21/21) who presented to L&D for induction of labor. She reports good movement. She is feeling contractions and would like to get an epidural. She denies VB or LOF. Her has been complicated by: - Chlamydia infection 02/2021-- CHAS neg 04/2021 - Asthma/bronchitis - Anti-M antibody - Mild anemia on iron - GBS positive Review of Systems Review of Systems: All systems reviewed & are unremarkable except as noted in HPI and below PMFSH Past Medical History Medical History Asthma Bronchitis Encounter for screening for infections with a predominantly sexual mode of transmission Family History Family History Mother Hypertension Father Hypertension Diabetes mellitus Grandparent Diabetes mellitus Breast cancer maternal grandmother Social History Social History Smoking status: Never smoker Second hand tobacco smoke exposure: No Alcohol intake: never Substance use: current Substance use type: does not use Additional occupation/education comments: packing Gender identity (if verbalized by the patient): Female Sexual Orientation (if Verbalized by the Patient): Straight or Heterosexual Spiritual care concerns: No Meds Home Medications and Allergies Home Medications Medication Instructions Recorded Confirmed Type vitamin with calcium 1 tablet PO DAILY #90 tabs 02/24/21 07/15/21 Rx no.72-iron 27 mg-folic acid 1 mg tablet ( Vitamins Plus Low Iron) albuterol sulfate 90 mcg/actuation 1 inh inhalation Q4H PRN shortness 04/07/21 07/15/21 Rx aerosol inhaler (ProAir HFA) of breath or wheezing #8.5 grams magnesium oxide 400 mg (241.3 mg 400 mg PO DAILY #90 tabs 06/06/21 07/15/21 Rx magnesium) tablet riboflavin (vitamin B2) 400 mg 400 mg PO DAILY #90 tabs 06/06/21 07/15/21 Rx tablet Allergies Allergy/AdvReac Type Severity Reaction Status Date / Time No Known Allergies Allergy Verified 09/03/21 17:04 Vital Signs Vital Signs - 24 hr 09/14/21 05:36 09/14/21 05:12 09/14/21 05:15 Temperature Pulse Rate 94 95 Blood Pressure 108/79 117/77 Oxygen Delivery Room Air 09/14/21 05:30 09/14/21 05:45 09/14/21 06:01 Temperature Pulse Rate 89 89 93 Blood Pressure 121/75 122/74 122/64 Oxygen Delivery 09/14/21 06:16 09/14/21 06:30 09/14/21 06:46 Temperature Pulse Rate 85 83 87 Blood Pressure 116/71 131/85 98/77 L Oxygen Delivery 09/14/21 07:00 09/14/21 07:16 09/14/21 08:01 Temperature 97.9 F Pulse Rate 71 77 116 H Blood Pressure 128/78 146/84 H 83/56 L Oxygen Delivery 09/14/21 08:31 09/14/21 09:06 09/14/21 09:00 Temperature 97.9 F Pulse Rate 89 93 Blood Pressure 110/74 120/72 Oxygen Delivery 09/14/21 09:30 Temperature Pulse Rate 80 Blood Pressure 133/79 Oxygen Delivery Exam Const: General: cooperative, healthy appearing, comfortable and no acute distress Resp: Effort & Inspection: normal respiratory effort Cardio: Rate: regular rate GI: Inspection: normal to inspection GI Palp: No abdominal tenderness : Other: FHT's: 130's/mod rhonda/ + accels/ no decels - cat 1 TOCO: ctx's q3min Cervix: 4/80/-2 Membranes: AROM, clear 1040 Skin: General skin exam: normal color Neuro: General: patient oriented x3 Extrem: General: normal to inspection Psych: Appearance: grossly normal Affect: normal affect Attitude: cooperative H&P: Results Labs Labs: Short CBC 09/14/21 Range/Units 05:07 WBC 8.9 (4.5-10.0) K/mm3 Hgb 11.1 L (12.0-15.0) g/dL Hct 34.2 L (37.0-47.0) % Plt Count 316 (150-375) k/mm3 Assessment and Plan Assessment a
--- NOTE | 2021-09-14 10:52 | WPDANESEPP ---
Anes - Eval Pre Procedure Procedure: Labor Epidural Date/Time: 09/14/21 10:52 Surgeon: ALEIDA Preop Diagnosis: Labor Pain Pre Op Diagnosis: IOL Patient Data Age: 26 Gender: F Height: 1.68 m Weight: 102 kg Last Vital Signs Temp 36.6 C 09/14/21 09:00 Pulse 79 09/14/21 10:50 BP 119/67 09/14/21 10:50 Pulse Ox 100 09/14/21 10:52 O2 Del Method Room Air 09/14/21 05:36 Allergies Allergy/AdvReac Type Severity Reaction Status Date / Time No Known Allergies Allergy Verified 09/03/21 17:04 Home Medications Medication Instructions Recorded Confirmed Type vitamin with calcium 1 tablet PO DAILY #90 tabs 02/24/21 07/15/21 Rx no.72-iron 27 mg-folic acid 1 mg tablet ( Vitamins Plus Low Iron) albuterol sulfate 90 mcg/actuation 1 inh inhalation Q4H PRN shortness 04/07/21 07/15/21 Rx aerosol inhaler (ProAir HFA) of breath or wheezing #8.5 grams magnesium oxide 400 mg (241.3 mg 400 mg PO DAILY #90 tabs 06/06/21 07/15/21 Rx magnesium) tablet riboflavin (vitamin B2) 400 mg 400 mg PO DAILY #90 tabs 06/06/21 07/15/21 Rx tablet Laboratory Tests 09/14/21 09/14/21 09/14/21 05:07 05:07 05:07 WBC 8.9 K/mm3 K/mm3 (4.5-10.0) RBC 3.98 M/mm3 L M/mm3 (4.2-5.4) Hgb 11.1 g/dL L g/dL (12.0-15.0) Hct 34.2 % L % (37.0-47.0) MCV 85.9 fl fl (80-100) MCH 27.9 pg pg (26-34) MCHC 32.5 g/dl g/dl (32-36) RDW 13.9 % % (11.5-14.5) Plt Count 316 k/mm3 k/mm3 (150-375) MPV 9.8 fl fl (7.4-10.4) Immature Gran % (Auto) 0.6 % H % (0-0.5) Neut % (Auto) 68.0 % % (45.5-73.1) Lymph % (Auto) 23.3 % % (18.3-44.2) [place] % (Auto) 7.4 % % (2.6-8.5) Eos % (Auto) 0.4 % % (0-4.4) Baso % (Auto) 0.3 % % (0.2-1.2) Lymph # (Auto) 2.08 K/mm3 K/mm3 (0.9-3.2) [place] # (Auto) 0.7 K/mm3 H K/mm3 (0.1-0.6) Eos # (Auto) 0.0 K/mm3 K/mm3 (0-0.3) Baso # (Auto) 0.0 K/mm3 K/mm3 (0.0-0.1) Abs Immat Gran (auto) 0.05 K/mm3 H K/mm3 (0.00-0.031) Absolute Neuts (auto) 6.1 K/mm3 K/mm3 (1.3-6.7) Absolute Nucleated RBC 0.0 K/mm3 K/mm3 (0.0-0.012) Nucleated RBC % 0.0 % % (0.0-0.2) RPR Pending Blood Type O Positive Antibody Screen Positive Antibody Identification Pending Antigen Identification Pending MARGARITA, IgG Interpret Not Performed MARGARITA, Poly Interpret Neg MARGARITA, Complement Interp Not Performed : gestational age ([facility] 09/21/21, ) Patient hx anesthesia problems: none Family hx anesthesia problems: none Results Review: All pre-operative results and documents have been reviewed as part of the pre-operative evaluation. [facility] Past Medical History Medical History Asthma Bronchitis Encounter for screening for infections with a predominantly sexual mode of transmission Family History Family History Mother Hypertension Father Hypertension Diabetes mellitus Grandparent Diabetes mellitus Breast cancer maternal grandmother Social History Social History Smoking status: Never smoker Second hand tobacco smoke exposure: No Alcohol intake: never Substance use: current Substance use type: does not use Additional occupation/education comments: packing Gender identity (if verbalized by the patient): Female Sexual Orientation (if Verbalized by the Patient): Straight or Heterosexual Spiritual care concerns: No Exam Day of Procedure 09/14/21 10:52 Patient weight: normal Heart: regular rate and rhythm Lungs: normal air movement Airway: Mallampati scal
--- NOTE | 2021-09-14 12:19 | P.PCNOB_ITS ---
OB - Delivery Note Procedure Delivery date: 09/14/21 Events: Elective Induction of Labor Induction method: Per Pitocin Protocol Delivery augmentation: Rupture of Membranes Delivery monitor: External FHT and External Uterine Route of delivery: Laceration Description: None Specimen: No Quantitative Blood Loss (ml): 200 Anesthesia type: Epidural Disposition: Floor [place] Baby Date of : 09/14/21 Time of : 12:09 Weeks of gestation at delivery: 39 Infant gender: Male Weight (pounds): 6 Weight (ounces): 8 presentation: vertex position: Left Occiput Anterior Placenta delivery description: Expressed Cord Vessel Description: 3 Vessels score one minute: 9 score five minutes: 9 Narrative: Jackie rapidly progressed to complete dilation with strong desire to push. When putting her legs up in stirrups head began . She easily delivered the infant's shoulders and body without complication. The was immediately placed skin to skin I had spontaneous cry. The umbilical cord was then clamped and cut. A segment of the cord was collected for cord gases. The remaining cord blood was collected for typing. With Pitocin running and gentle downward traction on the cord, the placenta delivered without complications. Good uterine tone with minimal bleeding was noted. She was examined and no lacerations were noted. Sponge, lap, instrument, and needle counts were correct at the end the procedure. Mom and baby were left bonding in the birthing suite in stable condition. [facility] Delivery Billing Delivery Delivery: Delivery Charge
[2021-09-14] MEDS: OXYTOCIN 30 UNITS/NS 500 ML 30 UNITS/500 ML BAG 125 UNITS IV CONT (12:42)
[2021-09-14] MEDS: BENZOCAINE 20% AER SPR (*SP) 56 GM CAN 1 SPRAY TOPICAL (14:25)
[2021-09-14] MEDS: WITCH HAZEL 40 PADS 1 PAD TOPICAL (14:25)
--- NOTE | 2021-09-14 15:20 | PC.NURSE ---
Patient transferred to post room #285 via wheelchair. Support person present. Oriented to unit, room, information board, rooming in, admission packet and security measures. Patient verbalizes understanding.
[2021-09-14] MEDS: IBUPROFEN 600 MG TABLET PO (17:24)
[2021-09-15 04:35] VITALS: BP 115/71; PULSE 59; RESP 16; TEMP 36.7
[2021-09-15 05:26] LABS: Hematocrit 32.7 % (37.0-47.0); Hemoglobin 10.6 g/dL (12.0-15.0)
--- NOTE | 2021-09-15 07:10 | PM.OBPNVD ---
OB - PN: Subj Subjective Date/time seen: 09/15/21 08:30 Narrative: PPD#1 Jackie reports doing well today. 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 Her pain is controlled. She is tolerating regular diet, voiding, passing gas, and ambulating without issues. She is bottle feeding. She would like her son circumcised. She would like to go home today. OB - PN: Obj Data Labs CBC & Chem 7: 09/15/21 04:38 Labs: Laboratory Results - last 24 hr 09/14/21 09/15/21 05:07 04:38 Hgb 10.6 L Hct 32.7 L Blood Type O Positive Antibody Screen Positive Antibody Identification Anti-M Antigen Identification Cancelled MARGARITA, Poly Interpret Neg Enhanced Crossmatch See Detail OB - PN A/P Assessment and Plan (1) Normal vaginal delivery: Code(s): O80 - Encounter for full-term uncomplicated delivery Status: Acute Plan day: 1 Plan: routine care and discharge home Comments: - Pelvic rest; take meds as prescribed - ER return precautions: fever, n/v/abd pain, bleeding, HTN Time Spent With Patient Time: Total time spent is greater than 50% in coordination of care (as documented) at patient's floor/unit and/or counseling patient: Review of Systems Constitutional: Constitutional: Denies chills, Denies fever(s) and Denies headache(s) Eyes: Eyes: Denies change in vision ENT: Denies dizziness and Denies headache(s) Cardiovascular: Cardiovascular: Denies chest pain, Denies palpitations and Denies dyspnea Respiratory: Respiratory: Denies cough and Denies dyspnea Gastrointestinal: Gastrointestinal: Denies nausea and Denies vomiting Neurologic: Denies dizziness and Denies headache(s) Endocrine: Endocrine: Denies palpitations Exam Const: General: cooperative, comfortable and no acute distress Orientation/consciousness: patient oriented x3 Resp: Effort & Inspection: normal respiratory effort Auscultation: clear to auscultation bilaterally Cardio: Rate: regular rate GI: Inspection: non-distended GI Palp: No abdominal tenderness and Yes Soft to palpation Auscultation: normal bowel sounds : Other: fundus firm Skin: General skin exam: normal color Neuro: General: patient oriented x3 Extrem: General: normal to inspection Psych: Appearance: grossly normal Affect: normal affect Attitude: cooperative
[2021-09-15 07:50] VITALS: BP 113/72; PULSE 71; RESP 18; TEMP 36.7; O2SAT 100
[2021-09-15] MEDS: IBUPROFEN 600 MG TABLET PO (08:12)
[2021-09-15] MEDS: DOCUSATE SODIUM 100 MG CAPSULE PO (08:12)
--- NOTE | 2021-09-15 11:01 | WPDANLDPN2 ---
Anes-Prog Note L&D Date/Time: 09/15/21 11:01 Comfortable throughout: labor and delivery Neuraxial method: epidural Epidural/Spinal procedure site: clean & non-tender Neuro status: Neuro function grossly intact. Vital Signs: Last Vital Signs Temp 36.7 C 09/15/21 07:50 Pulse 71 09/15/21 07:50 Resp 18 09/15/21 07:50 BP 113/72 09/15/21 07:50 Pulse Ox 100 09/15/21 07:50 O2 Del Method Room Air 09/14/21 19:00 Pain score (VAS): 0 I/O: Intake & Output 09/14/21 09/15/21 09/15/21 23:59 07:59 15:59 Intake Total 240 240 Balance 240 240 Patient feedback: Patient satisfied with anesthetic care.
[2021-09-15 11:40] VITALS: BP 116/78; PULSE 82; RESP 18; TEMP 36.2; O2SAT 100
[2021-09-15 12:01] LABS: Rapid Plasma Reagin Non-Reactive (NonReactive)
--- NOTE | 2021-09-17 15:27 | PM.OBDSVD ---
DS: Admitting Diagnosis Discharge Date 09/15/21 Admitting Diagnosis elective induction of labor DS: Discharge Diagnosis Discharge Diagnosis (1) Normal vaginal delivery: Code(s): O80 - Encounter for full-term uncomplicated delivery Status: Acute OB - DS: Summary OB Procedures : NST and Ultrasound OB Procedures Intrapartum: Spontaneous Vag Delivery OB Procedures: : None Peripartum Data Infant Delivery Method: Natural Vaginal Laceration Description: None complications: none [place] 1: Gender: Male Disposition of : home Status at Discharge Functional status at discharge: independent ambulation Overall status at discharge: patient is back to baseline Time Spent with Patient Time attestation: Total time spent providing and/or coordinating discharge services: Time spent: Less than 30 minutes Exam Const: General: cooperative, comfortable and no acute distress Nutritional Appearance: obese Orientation/consciousness: patient oriented x3 Resp: Effort & Inspection: normal respiratory effort Auscultation: clear to auscultation bilaterally Cardio: Rate: regular rate GI: Inspection: non-distended GI Palp: No abdominal tenderness and Yes Soft to palpation Auscultation: normal bowel sounds : Other: fundus firm Skin: General skin exam: normal color Neuro: General: patient oriented x3 Extrem: General: normal to inspection Psych: Appearance: grossly normal Affect: normal affect Attitude: cooperative Discharge Plan Discharge Attending physician on discharge: Marina Judge Consulting providers: Larisa Hernandez ; Vaishali Mccormick Discharging Clinician: Marina Judge Anticipated Discharge Date/Time: 09/15/21 14:00 Patient Disposition: Home, Self-Care Activity: may shower and pelvic rest Diet: regular Discharge Instructions: Education: Mom and Baby Guide Given to: Mother Follow-Up: Call your delivering provider's office for an appointment to be seen in: 4 Weeks Mom and baby should come to the [facility] for the follow-up appointment. Appointment Date/Time: September 17, 2021 at 8:00 am What to expect at your follow-up visit: Physical Assessment Call [phone] if you are unable to keep your appointment time. BREAST CARE: * Wear a snug supportive bra. * For engorgement discomfort: Bottle Feeding: * May apply ice packs EPISIOTOMY/PERINEAL CARE: * Until bleeding stops, use your german bottle after urinating * Change your pad frequently throughout the day * No tub baths until seen by your physician - You may shower ACTIVITY: * Rest as much as possible. * Do not exercise or lift anything heavier than your baby (such as laundry or other children.) * Avoid stairs or driving as much as possible. * Do not put anything into the vagina. No douching, tampons, or sexual activity until seen by physician. NOTIFY PHYSICIAN IF YOU HAVE ANY QUESTIONS OR IF ANY OF THE FOLLOWING SYMPTOMS OCCUR: * If your perineum becomes red, swollen, or more painful than what you have experienced in the hospital. * If your vaginal bleeding becomes foul smelling. * If your vaginal bleeding becomes more heavy than a period or if your bleeding changes from pink to bright red. However, you may pass an occasional walnut-sized clot once or twice for the first week . * If you experience a sharp, shooting pain in you calves. * If you discover a hard, reddened area on your breast or if you experience flu-like symptoms. DIET: * Eat regular, well-balanced meals. * Drink plenty of fluids daily. If , drink to thirst. Stand Alone Forms: General Discharge Information Follow-up/Referrals: Marina Judge MD [Physician] - 4 Weeks Discharge Medications: New acetaminophen [Mapap (acetaminophen)] 325 mg Tablet 650 mg PO Q6H PRN (Reason: Mild Pain (1-3) Or Headache) 10 Days
== END 2021-09-15 13:32 | disposition home or self-care (01) | DRG 560 ==
LOC: ANHLDR 04:38 → ANHOB2 16:17
PROVIDERS: Admitting Provider Obstetrics & Gynecology; PCP Physician Assistant; Visit Provider Obstetrics & Gynecology
DX: O99.824 Streptococcus B carrier state complicating childbirth (principal); O99.02 Anemia complicating childbirth; D64.9 Anemia, unspecified; O99.52 Diseases of the respiratory system complicating childbirth; Z3A.39 39 weeks gestation of pregnancy; Z37.0 Single live birth; J45.909 Unspecified asthma, uncomplicated
CPT/HCPCS: 36415; 85014; 85018; 85025; 86592; 86850; 86870; 86880; 86900; 86901; 86902; 86905; 86922; A9270; J0290; J2590; J2795; J7120

== ENCOUNTER 2022-01-12 00:39 | Day surgery (SDC) | payer OTHER, SELFPAY ==
[2022-01-06 10:55] VITALS: BMI 35.5
--- NOTE | 2022-01-06 10:59 | PC.NURSE ---
Report to the Outpatient Waiting Room, entrance under the green pavilion located off [facility], at time 0700 on date 01/12/22. Planned Procedure Time: 0900. Time changes happen often and if your time is changed the preop area will call you the afternoon before. - You and your visitor will be asked to self-screen and do not enter if you have any COVID symptoms. - Only one visitor is requested with a max of two and NO children visitors are allowed at this time. - The patient visitor may be requested to leave or wait in car when not with patient due to distancing restrictions. - A mask is optional within the hospital. Patients may have clear liquids (water, carbonated beverages, clear teas, apple juice) until 3 hours prior to surgery with a maximum of 20 ounces. - No food from midnight until time of surgery Take the following medications with a SIP of water the morning of surgery: N/A Medications to discontinue per physician: N/A Date to take last dose: N/A Please no make-up, nail nepali, hairspray, perfume, deodorant, or body powder the day of surgery. No jewelry (including any body piercings) or valuables the day of surgery, leave them at home. Please take a shower or bath the night before, or the morning of, surgery with an antibacterial soap. Wear comfortable, loose fitting clothing. - Jewelry must be removed prior to entering the operating room. Rings and piercings that are not removed may be cut off. - The hospital will not accept responsibility for valuables. - Please leave all valuables, including medications, at home the day of surgery. If you are going home after surgery, a licensed corporate driver must drive you home. - NO public transportation without another adult if you receive anesthesia. - We recommend that an adult stay with you for 24 hours following discharge. - We also recommend that you do not drive, make important decision, drink alcoholic beverages, or take any drugs that were not prescribed by your health care provider for at least 24 hours after your discharge time. Follow any additional instructions given to you from your surgeon. If you or anyone in your household have experienced Covid symptoms in the past week, please notify your surgeon or the nurse liaison at the phone number below for possible testing. Telephone instructions given to PT - SUZETTE CARROLL and asked if any additional questions and then verbalized understanding. Patient advised to call surgeon office or pre surgery nurse liaison [phone] if any additional questions.
--- NOTE | 2022-01-11 16:35 | PM.IMHP ---
H&P: HPI History of Present Illness Date/Time: 01/11/22 16:35 Chief Complaint: Sterilization requested Narrative: Jackie is a 26yo [id number] who presents for sterilization procedure. She is s/p NVSD on 09/14/21, this being her third. She is bottle feeding. She would like to proceed with a tubal ligation. Review of Systems Review of Systems: All systems reviewed & are unremarkable except as noted in HPI and below PMFSH Past Medical History Medical History Asthma Bronchitis Encounter for screening for infections with a predominantly sexual mode of transmission Family History Family History Mother Hypertension Father Hypertension Diabetes mellitus Grandparent Diabetes mellitus Breast cancer maternal grandmother Social History Social History Smoking status: Never smoker Second hand tobacco smoke exposure: No Alcohol intake: never Substance use: never Substance use type: does not use Living arrangements: with family Additional living arrangements comments: CHILDREN Additional occupation/education comments: packing Gender identity (if verbalized by the patient): Female Sexual Orientation (if Verbalized by the Patient): Straight or Heterosexual Spiritual care concerns: No Meds Home Medications and Allergies Home Medications Medication Instructions Recorded Confirmed Type No Home Medications 01/06/22 01/06/22 History Allergies Allergy/AdvReac Type Severity Reaction Status Date / Time No Known Allergies Allergy Verified 01/06/22 10:55 Exam Const: General: cooperative, comfortable and no acute distress Nutritional Appearance: obese Resp: Effort & Inspection: normal respiratory effort Cardio: Rate: regular rate GI: Inspection: normal to inspection GI Palp: No abdominal tenderness and Yes Soft to palpation : Other: deferred to OR Skin: General skin exam: normal color Neuro: General: patient oriented x3 Extrem: General: normal to inspection Psych: Appearance: grossly normal Affect: normal affect Attitude: cooperative Assessment and Plan Assessment and plan (1) Encounter for sterilization: Code(s): Z30.2 - Encounter for sterilization Status: Acute Plan - Proceed with laparoscopic bilateral tubal ligation - Risks and benefits discussed in detail; pt aware this is a permanent procedure
[2022-01-12] VITALS (9 sets, daily range): BP systolic 106–120; BP diastolic 67–80; PULSE 62–85; RESP 16–20; TEMP 36.2–36.3; O2SAT 97–100
--- NOTE | 2022-01-12 06:55 | WPDHPUPDATE1 ---
History and Physical Update Update Date/Time: 01/12/22 06:55 History and Physical has been reviewed, including an updated exam of the patient. There are NO changes in the patient's condition. Risks, benefits, and alternatives have been discussed and questions answered. Patient agrees to proceed with procedure.
[2022-01-12] MEDS: ACETAMINOPHEN 500 MG TABLET 1000 MG PO (07:28)
[2022-01-12] MEDS: LACTATED RINGERS 1,000 ML 30 ML IV CONT ×2 (07:35→10:03)
[2022-01-12] MEDS: KETOROLAC 15 MG/ML VIAL (*BKC) IV PUSH (07:37)
--- NOTE | 2022-01-12 08:11 | P.PNAN_ITS ---
Anes - Initial Pre Proc Eval Procedure: Operation Date: 01/12/22 09:00 Proposed Procedures p Laparoscopic Bilateral Tubal Ligation - Marina Judge MD Date/Time: 01/12/22 08:11 Surgeon: Marina Judge MD Pre Op Diagnosis: desires sterilization Patient Data Age: 26 Gender: F Height: 1.68 m Weight: 94.7 kg Last Vital Signs Temp 36.3 C L 01/12/22 07:05 Pulse 85 01/12/22 07:05 Resp 16 01/12/22 07:05 BP 118/78 01/12/22 07:05 Pulse Ox 100 01/12/22 07:05 O2 Del Method Room Air 01/12/22 07:05 Allergies Allergy/AdvReac Type Severity Reaction Status Date / Time No Known Allergies Allergy Verified 01/12/22 07:26 Home Medications Medication Instructions Recorded Confirmed Type acetaminophen 500 mg tablet 1,000 mg PO Q8H #60 tabs 01/12/22 Rx docusate sodium 100 mg capsule 100 mg PO BID #40 caps 01/12/22 Rx (Colace) ibuprofen 800 mg tablet 800 mg PO TID #30 tabs 01/12/22 Rx oxycodone 5 mg tablet 5 mg PO Q4H PRN pain 3 days #14 01/12/22 Rx tabs Patient hx anesthesia problems: none and other (motion sickness) Family hx anesthesia problems: none Results Review: All pre-operative results and documents have been reviewed as part of the pre- operative evaluation. [facility] Past Medical History Medical History Asthma Bronchitis Encounter for screening for infections with a predominantly sexual mode of transmission Family History Family History Mother Hypertension Father Hypertension Diabetes mellitus Grandparent Diabetes mellitus Breast cancer maternal grandmother Social History Social History Smoking status: Never smoker Second hand tobacco smoke exposure: No Alcohol intake: never Substance use: never Substance use type: does not use Living arrangements: with family Additional living arrangements comments: CHILDREN Additional occupation/education comments: packing Gender identity (if verbalized by the patient): Female Sexual Orientation (if Verbalized by the Patient): Straight or Heterosexual Spiritual care concerns: No Anes - Eval Final PreProcedure Day of Procedure 01/12/22 08:11 Patient weight: obese Heart: regular rate and rhythm Lungs: clear to auscultation Airway: Mallampati scale class II Neurological: alert and oriented Last oral intake: >/= 8 hours ASA classification: II Emergent: no Anesthetic plan: proceed Anesthesia type and monitoring: general ETT and standard monitoring Results Review: All pre-operative results and documents have been reviewed as part of the pre- operative evaluation. Informed Consent: The patient's anesthetic plan and its attendant risks and benefits were discussed with the patient/family/POA. Questions were solicited and answers provided to the satisfaction of the patient/family/POA.
[2022-01-12] MEDS: SCOPOLAMINE 1.5 MG PATCH TRANSDERM (08:20)
[2022-01-12] MEDS: BUPIVACAINE HCL 0.25% PF 30 ML VIAL INFILTRATE (08:56)
--- NOTE | 2022-01-12 09:55 | W.PM.PROC2 ---
Procedure Note - Detailed Date of Procedure 01/12/22 Pre-op Diagnosis desires sterilization Post-op Diagnosis Same Procedure Performed Laparoscopic bilateral tubal ligation Surgeon Marina Judge MD [facility] Anesthesia General Findings Uterus 9.5cm; normal appearing cervix; hemoperitoneum noted on diagnostic laparoscopy (~30cc); right ovary with hemorrhagic cyst, no longer bleeding; normal left ovary; normal uterus; normal tubes; multiple adhesions noted of the colon to the lower pelvis/abdominal side panda; good hemostasis at end of case. Description of Procedure Jackie was taken to the operating room where she was placed under general endotracheal anesthesia without complications. She was then prepped and draped in the usual sterile fashion in the dorsal lithotomy position with her legs in low Mckay stirrups and her arms tucked at her side with a strap over her chest. A time-out was performed and no preoperative antibiotics were indicated. My attention was turned down below where her bladder was drained via straight catheterization. A bivalve speculum was then placed within the vagina where the cervix was easily identified. The anterior lip of the cervix was grasped with a single-tooth tenaculum, the uterus was sounded, and a Dara uterine manipulator was placed without complications. My gloves were changed and my attention was turned to her abdomen. An umbilical incision was made, and a 5 mm trocar was placed under direct visualization without complications. Once intra-abdominal placement was confirmed the abdomen was insufflated with carbon dioxide gas. Small amount of hemoperitoneum was identified and no obvious injury. The ovaries were examined and a hemorrhagic cyst was noted on the right ovary but no active bleeding was noted. She was then placed in Trendelenburg and two additional 5 mm ports were placed in the left and right lower quadrants under direct visualization without complications. The above findings were noted. The left fallopian tube was then elevated and a tubal segment was removed using the Ligasure device. The tubal segment was then removed from the abdomen. The same procedure was then performed on the right side without any complications. Good hemostasis was noted. All instruments were removed from the abdomen. The insufflation was released and the trocars were removed. The 3 laparoscopic incision sites were reapproximated using 4-0 Monocryl and covered with Dermabond. The incisions were then infiltrated using 0.25% Marcaine (~20cc was used). The uterine manipulator was removed. Sponge, lap, instrument, and needle counts were correct at the end of the procedure. Patient was awoken from general anesthesia and taken to recovery with plans of same-day discharge home. Estimated Blood Loss 10 IV Fluids 1,000 Urine Output 150 Pathology Yes (left and right tubal segments sent separately) Complications No immediate complications Condition Stable Disposition Same day [facility] Billing Surgery - Charge Forward: Surgery Billing
[2022-01-12] MEDS: ONDANSETRON INJ 4 MG/2 ML VIAL IV PUSH (10:58)
[2022-01-12] MEDS: diphenhydrAMINE HCl INJ 50 MG/ML VIAL 25 MG IV PUSH (11:27)
== END 2022-01-12 12:00 | disposition home or self-care (01) ==
PROVIDERS: PCP Physician Assistant; Visit Provider Obstetrics & Gynecology
PROC: (CPT 58671; principal; 2022-01-12 09:00)
DX: Z30.2 Encounter for sterilization (principal); K66.1 Hemoperitoneum; N73.6 Female pelvic peritoneal adhesions (postinfective); N83.201 Unspecified ovarian cyst, right side; N83.8 Other noninflammatory disorders of ovary, fallopian tube and broad ligament; E66.9 Obesity, unspecified; Z68.33 Body mass index [BMI] 33.0-33.9, adult
CPT/HCPCS: 58661; 88302; A9270; J1100; J1200; J1885; J2250; J2405; J2704; J2710; J3010; J7030; J7120

== ENCOUNTER 2022-03-05 09:07 | Emergency (ER) | payer OTHER, SELFPAY ==
[2022-03-05 09:13] VITALS: BP 113/71; PULSE 114; RESP 14; TEMP 36.8; O2SAT 98
[2022-03-05 09:24] VITALS: O2SAT 98
--- NOTE | 2022-03-05 09:51 | ED.URI ---
HPI - URI/Sore Throat General Chief Complaint: Upper Respiratory Infection Stated Complaint: body aches, headache Time Seen by Provider: 03/05/22 09:29 History of Present Illness HPI Narrative: Patient states that for the last few days she has been having headache, body aches all over, cough and runny nose, she found out that a close contact tested positive for COVID recently. She does have a history of bronchitis for which she has been using her inhaler, she used it before she came in. Has been taking cough/cold medicine. She is vaccinated for COVID but has not had her most recent booster. Related Data Allergies Allergy/AdvReac Type Severity Reaction Status Date / Time No Known Allergies Allergy Verified 01/12/22 07:26 Review of Systems Review of Systems: CONST: Chills. HEENT: Congestion, rhinorrhea C/V: No chest pain RESP: cough GI: No nausea : No dysuria. M/S: All over body aches SKIN: No rash. NEURO: [Headache without focal numbness or weakness] PSYCH: [No depression] [facility] Past Medical History Medical History Asthma Bronchitis Encounter for screening for infections with a predominantly sexual mode of transmission Family History Family History Mother Hypertension Father Hypertension Diabetes mellitus Grandparent Diabetes mellitus Breast cancer maternal grandmother Social History Social History Smoking status: Never smoker Second hand tobacco smoke exposure: No Alcohol intake: never Substance use: never Substance use type: does not use Additional living arrangements comments: CHILDREN Additional occupation/education comments: packing Gender identity (if verbalized by the patient): Female Sexual Orientation (if Verbalized by the Patient): Straight or Heterosexual Spiritual care concerns: No Exam Narrative: EXAMINATION OF ORGAN SYSTEMS/BODY AREAS: Constitutional: Vital signs per nursing GENERAL:[No acute distress, non-toxic appearing.] Resting comfortably in bed, very well-appearing HEAD: Normal with no signs of head trauma. EYES: EOMI, conjunctiva normal ENT: Rhinorrhea, airway intact and normal voice LUNGS: Nonlabored breathing. HEART: Mildly tachy ABD: [Soft], [nontender to palpation] EXT: Normal range of motion SKIN: [No rashes or lesions.] NEURO: [Alert and oriented x 3. No gross focal sensory or strength deficits.] Ambulating normally, speech normal PSYCH: Normal affect Course Vital Signs Vital signs: Vital Signs Temperature 98.2 F 03/05/22 09:13 Pulse Rate 114 H 03/05/22 09:13 Respiratory Rate 14 03/05/22 09:13 Blood Pressure 113/71 03/05/22 09:13 Pulse Oximetry 98 03/05/22 09:13 Oxygen Delivery Room Air 03/05/22 09:13 Temperature 98.2 F 03/05/22 09:13 Pulse Rate 114 H 03/05/22 09:13 Respiratory Rate 14 03/05/22 09:13 Blood Pressure 113/71 03/05/22 09:13 Pulse Oximetry 98 03/05/22 09:24 Oxygen Delivery Room Air 03/05/22 09:24 MDM - URI/Sore Throat MDM Narrative Medical decision making narrative: ED COURSE AND MEDICAL DECISION MAKING: This 26 year old patient presents with symptoms most suggestive of viral upper respiratory tract infection. Lungs are clear bilaterally without any respiratory distress or accessory muscle use. She is slightly tachycardic here which I suspect is likely from recent use of her albuterol, she has no chest pain, no shortness of breath at rest, no DVT symptoms or risk factors, I therefore have low concern/suspicions for myocarditis or PE. Doubt meningitis without neck pain or AMS. Patient is treated symptomatically with prednisone for her asthma/bronchitis and toradol; she declines breathing treatment at this time as she has albuterol inhalers at home. COVID test is positive here. This is discussed with the patient. On reevaluation, s
[2022-03-05] MEDS: KETOROLAC 30 MG/ML VIAL (*BKC) IM (09:55)
[2022-03-05 10:00] LABS: Influenza A QL RT-PCR Negative (Negative); Influenza B QL RT-PCR Negative (Negative); SARS-CoV-2 RNA PCR Positive
[2022-03-05] MEDS: predniSONE 20 MG TABLET 40 MG PO (10:00)
[2022-03-05 10:33] VITALS: BP 114/88; PULSE 92; RESP 18; O2SAT 100
== END 2022-03-05 10:52 | disposition home or self-care (01) ==
PROVIDERS: Emergency Provider Emergency Medicine; PCP Physician Assistant
DX: U07.1 COVID-19 (principal); J45.909 Unspecified asthma, uncomplicated
CPT/HCPCS: 87636; 96372; 99283; J1885; J7512

== ENCOUNTER 2023-07-26 14:26 | Emergency (ER) | payer SELFPAY ==
[2023-07-26 14:48] VITALS: BP 120/95; PULSE 91; RESP 16; TEMP 36.4; O2SAT 100
--- NOTE | 2023-07-26 15:15 | ED.ABDPAIN ---
HPI - Abdominal Pain General Chief Complaint: Abdominal Pain <Alexis Hinojosa APRN - Last Filed: 07/26/23 15:17> Stated Complaint: abdominal pain <Alexis Hinojosa APRN - Last Filed: 07/26/23 15:17> Time Seen by Provider: 07/26/23 15:15 <Alexis Hinojosa APRN - Last Filed: 07/26/23 15:17> Focused HPI: Jennifer is a 28-year-old female patient presenting to the emergency room with complaints of bilateral lower abdominal discomfort and pain radiating into her back. States she has also having some vaginal spotting with slight vaginal discharge without odor. Reports she is having some burning with urination last week however that has resolved. Denies any known fever or chills. Last bowel movement was yesterday and normal for the patient. Denies any associated nausea vomiting at this time. General: Well-developed, well nourished, in no apparent distress. Head: Normocephalic, atraumatic. Cardio: Regular rate and rhythm, s1 and s2 normal, no murmur appreciated. Resp: Clear to auscultation bilaterally, no rhonchi, rales, wheezing or rubs. Abdomen: Soft, pliable, bowel sounds present in all quadrants, bilateral lower abdomen tender to palpation, no organomegly, no CVAT tenderness. Patient screened in triage and initial orders placed. Additional care and disposition to be based upon diagnostic testing and treatment. <Alexis Hinojosa APRN - Last Filed: 07/26/23 15:17> Source: patient <Alexis Hinojosa APRN - Last Filed: 07/26/23 15:17> Mode of arrival: ambulatory <Alexis Hinojosa APRN - Last Filed: 07/26/23 15:17> Limitations: no limitations <Alexis Hinojosa APRN - Last Filed: 07/26/23 15:17> History of Present Illness HPI narrative: Patient is a 28-year-old female here with bilateral adnexal pain and vaginal bleeding. Patient notes that she had a tubal ligation after her son's about a year and a half ago. She follows with Dr. Eckert's group. She had been having some irregular periods and bilateral adnexal pains postoperatively for a while which she had been informed was normal. She notes that the. Seemed to have regulated and the pain seemed to have resolved until the last couple of months. She states that last month she had 2 menstrual cycles [id number] by 2 days. This month she began spotting again after having intercourse with her a couple of days ago. The intercourse was not more aggressive than usual, she did not have any pain during or after intercourse. She does not have any concerns for STI. She does note some increased urination. 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 She has contacted her [employer] needle [employer]om recently, they were going to schedule her an appointment however there was a decent amount of weight until they could get her in. She was advised to come to the emergency department if her pain worsened. Given all of this she presented to the emergency department today for evaluation. She denies any fever chills. <Marquita Kramer MD - Last Filed: 07/26/23 21:06> Related Data Allergies/Adverse Reactions: Allergies Allergy/AdvReac Type Severity Reaction Status Date / Time No Known Allergies Allergy Verified 01/12/22 07:26 <Alexis Hinojosa APRN - Last Filed: 07/26/23 15:17> Review of Systems Review of Systems: All systems reviewed & are unremarkable except as noted in HPI and below <Marquita Kramer MD - Last Filed: 07/26/23 21:06> [facility] Past Medical History Medical History: Medical History Asthma Bronchitis Encounter for screening for infections with a predominantly sexual mode of transmission <Alexis Hinojosa APRN - Last Filed: 07/26/23 15:17> Family History Family History: Family History (Reviewed 03/05/22 @ 09:54 by Kathy
[2023-07-26 15:39] LABS: Basophils Percent Auto 0.5 % (0.2-1.2); Eosinophils Absolute Auto 0.1 K/mm3 (0-0.3); Eosinophils Percent Auto 0.8 % (0-4.4); Hematocrit 38.2 % (37.0-47.0); Hemoglobin 12.6 g/dL (12.0-15.0); Immature Granulocyte Absolute 0.01 K/mm3 (0.00-0.031); Immature Granulocyte Percent A 0.2 % (0-0.5); Lymphocytes Absolute Auto 2.49 K/mm3 (0.9-3.2); Lymphocytes Percent Auto 38.1 % (18.3-44.2); Mean Corpuscular Hemoglobin 28.3 pg (26-34); Mean Corpuscular Volume 85.8 fl (80-100); Mean Platelet Volume 9.6 fl (7.4-10.4); Monocytes Absolute Auto 0.5 K/mm3 (0.1-0.6); Neutrophils Absolute Auto 3.5 K/mm3 (1.3-6.7); Neutrophils Percent Auto 53.4 % (45.5-73.1); Platelet Count Result 298 k/mm3 (150-375); Red Blood Count 4.45 M/mm3 (4.2-5.4); Red Cell Distribution Width 13.5 % (11.5-14.5); White Blood Count 6.5 K/mm3 (4.5-10.0)
[2023-07-26 15:43] LABS: Appearance Urine Clear (Clear); Bacteria Urine None Seen /hpf; Bilirubin Urine Negative (Negative); Blood Urine Negative (Negative); Color Urine Yellow (Yellow); Glucose Urine UA Negative (Negative); Ketones Urine Negative (Negative); Leukocyte Esterase Ur Trace LEU/UL (Negative); Nitrate Urine Negative (Negative); Non Pathogenic Casts 0-2; Protein Urine Negative (Negative); RBC Urine 0-2 /hpf (0-2); Specific Grav Ur 1.021 (1.001-1.035); Squamous Epithelial Cell Urine None Seen /hpf (Few); WBC Urine 0-5 /hpf (0-3)
[2023-07-26 15:49] LABS: Alanine Aminotransferase 13 U/L (6-35); Albumin Level 4.6 g/dL (3.5-5.1); Alkaline Phosphatase 55 U/L (38-126); Anion Gap 7 mmol/L (4-12); Aspartate Amino Transferase 20 U/L (14-36); Bilirubin,Total 0.6 mg/dL (0.2-1.3); Blood Urea Nitrogen 8 mg/dL (7-17); Calcium 9.6 mg/dL (8.4-10.2); Carbon Dioxide 27 mmol/L (22-30); Chloride 106 mmol/L (98-107); Estimated CRCL calculation 96 ml/min; Estimated Glomerular Filt Rate > 60; Glucose 86 mg/dL (65-110); Lipase 45 U/L (23-300); Potassium 3.9 mmol/L (3.4-5.0); Sodium 140 mmol/L (137-145)
[2023-07-26 15:51] LABS: Add Urine Microscopic? YES
== END 2023-07-26 18:56 | disposition home or self-care (01) ==
PROVIDERS: Nurse Practitioner Family; Emergency Provider Student in an Organized Health Care Education/Training Program; PCP Physician Assistant
DX: R10.2 Pelvic and perineal pain (principal); N93.8 Other specified abnormal uterine and vaginal bleeding; J45.909 Unspecified asthma, uncomplicated
CPT/HCPCS: 36415; 80053; 81001; 81025; 83690; 85025; 99283

== ENCOUNTER 2024-11-02 19:53 | Emergency (ER) | payer OTHER, MEDICAID, SELFPAY ==
--- OUTSIDE RECORDS SUMMARY | 2024-11-02 19:56 | XMS_ITS | Clinical Summary ---
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 Gender Identity Not on file Sexual Orientation Not on file Plan of Treatment Health Maintenance Due Date Last Done Comments Hepatitis C Virus (HCV) Screening 1995 SARS-COV-2 Immunization (2023- season) 2023 Influenza Immunization (#1) 10/16/202404/2015, 03/18/2015, 11/07/2012, Additional history exists Respiratory Syncytial Virus (RSV) Immunization (Adult) (1 - 1-dose 75+ series) 06/19/2070 Hepatitis B Immunization Completed 996, 1995, 1995 Human Papillomavirus (HPV) Immunization Completed 11/27/2010, 02/27/2010, 11/21/2009 Meningococcal Immunization (ACWY) Completed 11/07/2012, 05/15/2008 DTaP/Tdap/Td Immunization Discontinued 2017, 05/14/2005, 12/15/1996, Additional history exists TdaP Immunization Completed 08/10/2017 Pneumococcal Immunization Combined Aged Out No longer eligible based on patient's age to complete this topic Rotavirus Immunization Aged Out No lo nger eligible based on patient's age to complete this topic
--- OUTSIDE RECORDS SUMMARY | 2024-11-02 19:56 | XMS_ITS | Clinical Summary ---
Author Organization [facility] Address [address] [place] [address] Care Team Providers Care Life Science Technician Name Role Phone Sima Yoder PA-C Primary Care Provider + Source Comments [facility],non-owned Affiliates and Associated Physician Practices is amultiple site organization consisting of ambulatory clinics and hospital sitesin [place], [place], [place] and [place]. This disclosure is being madepursuant to the Care Everywhere program and may not contain all information available regarding this patient. Last updated 17.[facility] Medications * Be aware that medications may not be up to date on this document. Alwaysverify current medications with the patient. Calcium Carb-Cholecalci ferol (CALCIUM-VITAMI N D3) 600-400 MG-UNIT Take 1 Tab by mouth 2 times daily Active metroNIDAZOLE vaginal (METROGEL - VAGINAL) 0.75 % vaginal gel Insert 1 Applicator into the vagina at bedtime Active miconazole (MONISTAT 7 SIMPLY CURE) 2 % vaginal cream Insert 1 Applicator into the vagina once daily Active Vit-Fe Fumarate-FA ( VITAMIN) 28-0.8 MG tablet Take 1 Tab by mouth once daily Active albuterol HFA (PROVENTIL;VENT KIKA;PROAIR) 108 (90 BASE) MCG/ACT inhaler Inhale 2 Puffs by mouth every 6 hours as needed Active Benzonatate (TESSALON PERLES PO) Active Vitamin D3 (CHOLECALCIFERO L) 2000 UNITS capsule Take 2,000 Units by mouth once daily Active Active Problems Problem Noted Date Diagnosed Date Supervision of high-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 young prim igravida 06/17/2016 Overview (06/17/2016): PNL: O+/?/-/- Ab:Anti-M GCT: HIV: NR GBS: Dating: H/H/Plt: 12.9/38.2/327 Hgb Elec: Neg UDS: Neg QS: CF: Neg Pap: Gc/Chl: Neg/Neg UCx: MUG Breast/Bottle: Family Planning: Anti-M isoimmunization affecting , ante 06/17/2016 Overview (06/25/2016): Too weak to titer Depression screen 06/17/2016 Overview (06/17/2016): EPDS score: Family History Medical History Relation Name Comments Diabetes Father Hypertension Father Cancer - Colon Maternal Grandmother Relation Name Status Comments Father Maternal Grandmother Social History Tobacco Use Types Packs/Day Years Used Date Smoking Tobacco: Never Comments No Sex and Gender Information Value Date Recorded Sex Assigned at Not on file Legal Sex Female 8:14 AM CDT Gender Identity Not on file Sexual Orientation Not on file Plan of Treatment Health Maintenance Due Date Last Done Comments HIV SCREENING 06/19/2010 HEPATITIS C SCREENING 06/15/2013 DTAP/TDAP/TD VACCINES (1 - Tdap) 06/19/2014 HEPATITIS B VACCINE (1 of 3 - 19+ 3-dose series) 06/19/2014 HPV VACCINE (1 - 3-dose SCDM series) 06/19/2022 DEPRESSION SCREENING 02/16/2024 COVID-19 VACCINE (1 - 2023-2 5 season) 2024 INFLUENZA VACCINE (#1) 2024 ZOSTER VACCINE (1 of 2) 06/19/2045 HIB VACCINE Aged Out No longer eligi ble based on patient's age to complete this topic MENINGOCOCCAL (Group B) VACC INE SHARED DECISION-MAKING Aged Out No longer eligibl e based on patient's age to complete this topic MENINGOCOCCAL GROUPS A/C/Y/W VACCINE Aged Out No longer eligible b ased on patient's age to complete this topic PNEUMOCOCCAL VACCINE Aged Out No long er eligible based on patient's age to complete this topic Insurance [facility] Advance Directives Documents on File Type Date Recorded 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
[2024-11-02 20:04] VITALS: BP 127/93; PULSE 82; RESP 16; TEMP 36.6; O2SAT 98
[2024-11-02 21:59] VITALS: BP 131/75; PULSE 85; RESP 14; O2SAT 97
[2024-11-02] MEDS: TETRACAINE HCL 0.5% OPHTH SOLN 4 ML BTL AFFCTD EYE (22:15)
[2024-11-02] MEDS: FLUORESCEIN SOD 1 MG/STRIP AFFCTD EYE (22:15)
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
== END 2024-11-02 22:37 | disposition home or self-care (01) ==
LOC: ANHED 22:16
PROVIDERS: Emergency Provider Emergency Medicine; PCP Physician Assistant
DX: S05.91XA Unspecified injury of right eye and orbit, initial encounter (principal); J45.909 Unspecified asthma, uncomplicated; W51.XXXA Accidental striking against or bumped into by another person, initial encounter
CPT/HCPCS: 99283